=== PATIENT | male | born 1975 | race Caucasian/White ===

== ENCOUNTER 2017-01-17 20:01 | Inpatient (IN) | payer MEDICARE, MEDICAID ==
[~2017-01-17] VITALS: Ht 160 cm; Wt 71.7 kg
[2017-01-18] VITALS: BP 109/41
[2017-01-18] MEDS ORDERED: DOCUSATE SODIUM 283 MG/5 ML MINI-ENEMA PR PRN
[2017-01-18] MEDS ORDERED: ACETAMINOPHEN 650 MG/20.3 ML SOLUTION UDCUP GT PRN
[2017-01-18 00:27] LABS: GLUCOSE,POINT OF CARE 76 MG/DL (70-110)
[2017-01-18] MEDS ORDERED: DEXTROSE 50%-WATER 25 GM/50 ML SYRINGE IVP PRN (00:30)
[2017-01-18] MEDS ORDERED: LACTULOSE 20 GM/30 ML SOLUTION UDCUP GT PRN (00:45)
[2017-01-18] MEDS: ACETAMINOPHEN 650 MG/20.3 ML SOLUTION UDCUP GT PRN (01:08)
[2017-01-18] MEDS: HEPARIN SODIUM,PORCINE 5,000 UNITS/ML VIAL SQ SCH ×3 (01:08→20:50)
[2017-01-18] MEDS: FAMOTIDINE 20 MG TABLET GT SCH ×2 (01:08→20:50)
[2017-01-18] MEDS ORDERED: INSU100V12 SQ (03:06)
[2017-01-18] MEDS ORDERED: SODIUM CL IRRIG SOLN BOTTLE 250 ML IRRIG ONE ×2 (04:55→20:44)
[2017-01-18 06:33] LABS: GLUCOSE COMMENT 1 Received Meds; GLUCOSE,POINT OF CARE 304 MG/DL (70-110)
[2017-01-18] MEDS: INSULIN REGULAR, HUMAN 100 UNITS/ML SQ PRN ×2 (07:12→12:20)
[2017-01-18 07:53] VITALS: BP 148/93
[2017-01-18] MEDS ORDERED: EPOETIN ALFA 10,000 UNITS/ML 2 ML VIAL SQ SCH (09:00)
[2017-01-18] MEDS ORDERED: HEPARIN SODIUM,PORCINE 5,000 UNITS/ML VIAL SQ SCH (09:00)
[2017-01-18] MEDS ORDERED: MULTIVITAMINS WITH MINERALS, THERAPEUTIC 15 ML UDCUP GT SCH (09:00)
[2017-01-18] MEDS: INSULIN DETEMIR 100 UNITS/ML SQ SCH (09:08)
[2017-01-18] MEDS: AMIODARONE HCL 200 MG TABLET GT SCH (09:08)
[2017-01-18 09:09] LABS: BASOPHILS # (AUTO) 0.03 K/uL (0.00-0.20); BASOPHILS % (AUTO) 0.4 % (0.0-2.0); EOSINOPHILS # (AUTO) 0.42 K/uL (0.00-0.70); EOSINOPHILS % (AUTO) 4.66 % (1.0-6.0); HEMATOCRIT 29.2 % (41-53); HEMOGLOBIN 8.9 g/dL (13.5-17.5); LYMPHOCYTES % (AUTO) 22.3 % (22.0-44.0); MEAN CORPUSCULAR HEMOGLOBIN 24.9 pg (26.0-34.0); MEAN CORPUSCULAR HGB CONC 30.3 G/dL (31.0-37.0); MEAN CORPUSCULAR VOLUME 82 fL (80-100); MONOCYTES # (AUTO) 0.9 K/uL (0.1-1.0); MONOCYTES % (AUTO) 9.6 % (2.0-9.0); NEUTROPHILS # (AUTO) 5.6 K/uL (1.8-7.7); NEUTROPHILS % (AUTO) 63.1 % (40.0-70.0); PLATELET COUNT (AUTO) 142 K/uL (150-450); RED BLOOD CELL COUNT(AUTO) 3.55 MIL/uL (4.50-5.90); RED CELL DISTRIBUTION WIDTH 21.5 % (11.5-14.5)
[2017-01-18] MEDS: PredniSONE 5 MG TABLET GT SCH (09:09)
[2017-01-18] MEDS: FOLIC ACID 1 MG TABLET GT SCH (09:09)
[2017-01-18] MEDS: VITAMIN B COMP/VIT C/FOLIC ACID CAPSULE GT SCH (09:09)
[2017-01-18] MEDS: ASPIRIN 81 MG CHEWABLE TABLET GT SCH (09:09)
[2017-01-18] MEDS: ATORVASTATIN CALCIUM 20 MG TABLET GT SCH (09:09)
[2017-01-18 09:11] LABS: RBC MORPHOLOGY COMMENT ABNORMAL RBC MORPH
[2017-01-18 09:24] LABS: CALCIUM, TOTAL 8.5 mg/dL (8.8-10.5); CREATININE 5.54 mg/dL (0.60-1.30); POTASSIUM 4.6 mmol/L (3.5-5.1)
[2017-01-18] MEDS: IPRATROPIUM BROMIDE 0.5 MG/2.5 ML NEB SOLUTION NEB SCH ×4 (10:52→21:35)
[2017-01-18] MEDS: ALBUTEROL SULFATE 2.5 MG/0.5 ML NEB SOLUTION NEB SCH ×4 (10:52→21:36)
[2017-01-18] MEDS: ACETYLCYSTEINE 10% 100 MG/ML 4 ML NEB SOLUTION NEB SCH ×2 (10:55→21:36)
[2017-01-18 13:42] LABS: GLUCOSE,POINT OF CARE 270 MG/DL (70-110)
[2017-01-18 15:10] VITALS: BP 104/46
[2017-01-18 19:01] LABS: GLUCOSE,POINT OF CARE 121 MG/DL (70-110)
[2017-01-18] MEDS: SENNA 218 MG/5 ML SYRUP ORAL.SYG GT SCH (20:50)
[2017-01-19 00:10] VITALS: BP 128/60
[2017-01-19] MEDS: ACETAMINOPHEN 650 MG/20.3 ML SOLUTION UDCUP GT PRN ×4 (00:10→21:30)
[2017-01-19 00:17] LABS: GLUCOSE,POINT OF CARE 125 MG/DL (70-110)
[2017-01-19 05:52] LABS: GLUCOSE COMMENT 1 Received Meds; GLUCOSE,POINT OF CARE 394 MG/DL (70-110)
[2017-01-19] MEDS: INSULIN REGULAR, HUMAN 100 UNITS/ML SQ PRN ×4 (05:57→23:49)
[2017-01-19 07:13] VITALS: BP 98/54
[2017-01-19] MEDS: ACETYLCYSTEINE 10% 100 MG/ML 4 ML NEB SOLUTION NEB SCH ×2 (07:35→20:53)
[2017-01-19] MEDS: ALBUTEROL SULFATE 2.5 MG/0.5 ML NEB SOLUTION NEB SCH ×4 (07:35→20:53)
[2017-01-19] MEDS: IPRATROPIUM BROMIDE 0.5 MG/2.5 ML NEB SOLUTION NEB SCH ×4 (07:35→20:53)
[2017-01-19 07:39] LABS: HEMOGLOBIN A1C 6.3 % (4.5-6.2)
[2017-01-19 07:47] LABS: ALBUMIN 2.7 g/dL (3.4-5.0); BILIRUBIN,TOTAL 0.3 mg/dL (0.1-1.0); CALCIUM, TOTAL 8.5 mg/dL (8.8-10.5); CREATININE 6.6 mg/dL (0.60-1.30); MAGNESIUM 2.8 mg/dL (1.80-2.40); PHOSPHORUS 2.1 mg/dL (2.5-4.9); POTASSIUM 5.4 mmol/L (3.5-5.1); THYROID STIMULATING HORMONE 7.55 uIU/mL (0.36-3.74); TOTAL PROTEIN, SERUM 6.3 g/dL (6.4-8.2)
[2017-01-19] MEDS: INSULIN DETEMIR 100 UNITS/ML SQ SCH ×2 (09:00→21:39)
[2017-01-19 09:07] LABS: GLUCOSE,POINT OF CARE 379 MG/DL (70-110)
[2017-01-19] MEDS: PredniSONE 5 MG TABLET GT SCH (10:21)
[2017-01-19] MEDS: FOLIC ACID 1 MG TABLET GT SCH (10:21)
[2017-01-19] MEDS: ATORVASTATIN CALCIUM 20 MG TABLET GT SCH (10:21)
[2017-01-19] MEDS: HEPARIN SODIUM,PORCINE 5,000 UNITS/ML VIAL SQ SCH ×2 (10:21→21:29)
[2017-01-19] MEDS: AMIODARONE HCL 200 MG TABLET GT SCH (10:21)
[2017-01-19] MEDS: ASPIRIN 81 MG CHEWABLE TABLET GT SCH (10:21)
[2017-01-19] MEDS: MINERAL OIL/PETROLATUM 120 GM CREAM TP SCH ×2 (10:22→21:29)
[2017-01-19] MEDS: VITAMIN B COMP/VIT C/FOLIC ACID CAPSULE GT SCH (10:22)
[2017-01-19 12:28] LABS: GLUCOSE COMMENT 1 Received Meds; GLUCOSE,POINT OF CARE 168 MG/DL (70-110)
[2017-01-19 15:10] VITALS: BP 115/62
[2017-01-19] MEDS ORDERED: HEPARIN SODIUM,PORCINE 1,000 UNITS/ML VIAL IVP ONE (16:31)
[2017-01-19] MEDS ORDERED: MELATONIN 3 MG TABLET PO PRN ×3 (17:15→21:15)
[2017-01-19 17:31] LABS: ABG A-A DIFF O2 57.9 mmHg (10-20.0); ABG BASE EXCESS 4.6 mmol/L (-2.0-3.0); ABG HCO3 28.3 mmol/L (22.0-26.0); ABG PCO2 40 mmHg (35-45); ABG PH 7.469 (7.35-7.450); ALLEN TEST, BLOOD GAS POS; TEMPERATURE, FAHRENHEIT, BG 98.6 FAHREN (96.0-98.6)
[2017-01-19 18:37] LABS: GLUCOSE,POINT OF CARE 110 MG/DL (70-110)
[2017-01-19] MEDS: SENNA 218 MG/5 ML SYRUP ORAL.SYG GT SCH ×2 (21:00→21:29)
[2017-01-19] MEDS: FAMOTIDINE 20 MG TABLET GT SCH (21:29)
[2017-01-19 22:22] LABS: GLUCOSE,POINT OF CARE 166 MG/DL (70-110)
[2017-01-19 23:41] VITALS: BP 131/81
[2017-01-20 00:02] LABS: GLUCOSE COMMENT 1 Received Meds; GLUCOSE,POINT OF CARE 227 MG/DL (70-110)
[2017-01-20 06:17] LABS: GLUCOSE,POINT OF CARE 113 MG/DL (70-110)
[2017-01-20 07:20] VITALS: BP 114/67
[2017-01-20 07:42] LABS: CALCIUM, TOTAL 8.4 mg/dL (8.8-10.5); CREATININE 4.61 mg/dL (0.60-1.30); POTASSIUM 3.9 mmol/L (3.5-5.1); THYROID STIMULATING HORMONE 9.17 uIU/mL (0.36-3.74)
[2017-01-20] MEDS: AMIODARONE HCL 200 MG TABLET GT SCH (08:00)
[2017-01-20] MEDS: VITAMIN B COMP/VIT C/FOLIC ACID CAPSULE GT SCH (08:00)
[2017-01-20] MEDS: ASPIRIN 81 MG CHEWABLE TABLET GT SCH (08:00)
[2017-01-20] MEDS: PredniSONE 5 MG TABLET GT SCH (08:01)
[2017-01-20] MEDS: FOLIC ACID 1 MG TABLET GT SCH (08:01)
[2017-01-20] MEDS: ATORVASTATIN CALCIUM 20 MG TABLET GT SCH (08:01)
[2017-01-20] MEDS: INSULIN DETEMIR 100 UNITS/ML SQ SCH ×2 (08:08→21:12)
[2017-01-20] MEDS: ALBUTEROL SULFATE 2.5 MG/0.5 ML NEB SOLUTION NEB SCH ×4 (10:55→21:29)
[2017-01-20] MEDS: IPRATROPIUM BROMIDE 0.5 MG/2.5 ML NEB SOLUTION NEB SCH ×4 (10:55→21:30)
[2017-01-20] MEDS: ACETYLCYSTEINE 10% 100 MG/ML 4 ML NEB SOLUTION NEB SCH ×2 (10:55→21:43)
[2017-01-20] MEDS: HEPARIN SODIUM,PORCINE 5,000 UNITS/ML VIAL SQ SCH ×2 (11:01→21:00)
[2017-01-20] MEDS: MINERAL OIL/PETROLATUM 120 GM CREAM TP SCH (11:01)
[2017-01-20] MEDS: INSULIN REGULAR, HUMAN 100 UNITS/ML SQ PRN ×2 (12:28→23:43)
[2017-01-20 13:48] LABS: GLUCOSE COMMENT 1 Received Meds; GLUCOSE,POINT OF CARE 203 MG/DL (70-110)
[2017-01-20 15:42] VITALS: BP 101/57
[2017-01-20 18:22] LABS: GLUCOSE,POINT OF CARE 107 MG/DL (70-110)
[2017-01-20] MEDS: SENNA 218 MG/5 ML SYRUP ORAL.SYG GT SCH (20:59)
[2017-01-20] MEDS: ACETAMINOPHEN 650 MG/20.3 ML SOLUTION UDCUP GT PRN (20:59)
[2017-01-20] MEDS: FAMOTIDINE 20 MG TABLET GT SCH (21:00)
[2017-01-20] MEDS: COLD CREAM, SKIN EMOLLIENT 340 GM JAR TP SCH (21:00)
[2017-01-20 21:53] LABS: GLUCOSE,POINT OF CARE 207 MG/DL (70-110)
[2017-01-20] MEDS: MELATONIN 3 MG TABLET PO PRN (23:46)
[2017-01-21 00:07] LABS: GLUCOSE COMMENT 1 Received Meds; GLUCOSE,POINT OF CARE 327 MG/DL (70-110)
[2017-01-21 00:08] VITALS: BP 140/72
[2017-01-21] MEDS ORDERED: INSNOV SQ (01:00)
[2017-01-21] MEDS ORDERED: SEVEC800 PO (01:00)
[2017-01-21] MEDS ORDERED: FURO40 PO ×2 (01:00)
[2017-01-21] MEDS ORDERED: PRED5 PO (01:00)
[2017-01-21] MEDS ORDERED: CARV6 PO (01:00)
[2017-01-21] MEDS ORDERED: TACR.5 PO (01:00)
[2017-01-21] MEDS ORDERED: PRAV40 PO (01:00)
[2017-01-21] MEDS ORDERED: WATER FOR IRRIGATION,STERILE 1000 ML SOLUTION BOTTLE ONE ×2 (01:16→15:49)
[2017-01-21] MEDS: LEVOTHYROXINE SODIUM 25 MCG TABLET PO SCH (05:45)
[2017-01-21 06:02] LABS: GLUCOSE COMMENT 1 Received Meds; GLUCOSE,POINT OF CARE 164 MG/DL (70-110)
[2017-01-21] MEDS: INSULIN REGULAR, HUMAN 100 UNITS/ML SQ PRN (06:09)
[2017-01-21 07:10] VITALS: BP 117/61
[2017-01-21] MEDS: FOLIC ACID 1 MG TABLET GT SCH (08:02)
[2017-01-21] MEDS: PredniSONE 5 MG TABLET GT SCH (08:02)
[2017-01-21] MEDS: ATORVASTATIN CALCIUM 20 MG TABLET GT SCH (08:02)
[2017-01-21] MEDS: VITAMIN B COMP/VIT C/FOLIC ACID CAPSULE GT SCH (08:02)
[2017-01-21] MEDS: COLD CREAM, SKIN EMOLLIENT 340 GM JAR TP SCH ×2 (08:02→20:13)
[2017-01-21] MEDS: HEPARIN SODIUM,PORCINE 5,000 UNITS/ML VIAL SQ SCH ×2 (08:02→20:12)
[2017-01-21] MEDS: AMIODARONE HCL 200 MG TABLET GT SCH (08:02)
[2017-01-21] MEDS: ASPIRIN 81 MG CHEWABLE TABLET GT SCH (08:02)
[2017-01-21] MEDS: INSULIN DETEMIR 100 UNITS/ML SQ SCH (08:40)
[2017-01-21] MEDS: CHOLECALCIFEROL (VIT D3) 1,000 UNITS TABLET PO SCH (10:43)
[2017-01-21] MEDS: IPRATROPIUM BROMIDE 0.5 MG/2.5 ML NEB SOLUTION NEB SCH ×4 (11:10→20:08)
[2017-01-21] MEDS: ACETYLCYSTEINE 10% 100 MG/ML 4 ML NEB SOLUTION NEB SCH ×2 (11:10→20:09)
[2017-01-21] MEDS: ALBUTEROL SULFATE 2.5 MG/0.5 ML NEB SOLUTION NEB SCH ×4 (11:11→20:08)
[2017-01-21 12:56] LABS: GLUCOSE,POINT OF CARE 84 MG/DL (70-110)
[2017-01-21 15:03] VITALS: BP 119/55
[2017-01-21] MEDS: ACETAMINOPHEN 650 MG/20.3 ML SOLUTION UDCUP GT PRN (16:57)
[2017-01-21] MEDS: ONDANSETRON HCL 4 MG TABLET PO PRN (17:04)
[2017-01-21 19:03] LABS: GLUCOSE,POINT OF CARE 87 MG/DL (70-110)
[2017-01-21 19:03] LABS: GLUCOSE COMMENT 1 Juice/Food/D50 Given; GLUCOSE,POINT OF CARE 57 MG/DL (70-110)
[2017-01-21] MEDS: SENNA 218 MG/5 ML SYRUP ORAL.SYG GT SCH (20:12)
[2017-01-21] MEDS: FAMOTIDINE 20 MG TABLET GT SCH (20:12)
[2017-01-21] MEDS: MELATONIN 3 MG TABLET PO PRN (23:39)
[2017-01-22] VITALS: BP 122/81
[2017-01-22] MEDS: INSULIN REGULAR, HUMAN 100 UNITS/ML SQ PRN ×4 (00:01→23:50)
[2017-01-22 00:12] LABS: GLUCOSE COMMENT 1 Received Meds; GLUCOSE,POINT OF CARE 285 MG/DL (70-110)
[2017-01-22] MEDS: IPRATROPIUM BROMIDE 0.5 MG/2.5 ML NEB SOLUTION NEB PRN (01:49)
[2017-01-22] MEDS: ALBUTEROL SULFATE 2.5 MG/0.5 ML NEB SOLUTION NEB PRN (01:49)
[2017-01-22] MEDS: ONDANSETRON HCL 4 MG TABLET PO PRN ×2 (05:30→20:02)
[2017-01-22] MEDS: LEVOTHYROXINE SODIUM 25 MCG TABLET PO SCH (05:30)
[2017-01-22 05:36] LABS: GLUCOSE COMMENT 1 Received Meds; GLUCOSE,POINT OF CARE 349 MG/DL (70-110)
[2017-01-22 07:11] VITALS: BP 107/47
[2017-01-22 07:17] LABS: CALCIUM, TOTAL 8.6 mg/dL (8.8-10.5); CREATININE 7.67 mg/dL (0.60-1.30); MAGNESIUM 2.8 mg/dL (1.80-2.40); PHOSPHORUS 2.6 mg/dL (2.5-4.9); POTASSIUM 4.5 mmol/L (3.5-5.1)
[2017-01-22] MEDS: IPRATROPIUM BROMIDE 0.5 MG/2.5 ML NEB SOLUTION NEB SCH ×4 (08:11→21:17)
[2017-01-22] MEDS: ALBUTEROL SULFATE 2.5 MG/0.5 ML NEB SOLUTION NEB SCH ×4 (08:11→21:17)
[2017-01-22] MEDS: ACETYLCYSTEINE 10% 100 MG/ML 4 ML NEB SOLUTION NEB SCH ×2 (08:11→21:17)
[2017-01-22] MEDS: FOLIC ACID 1 MG TABLET GT SCH (08:21)
[2017-01-22] MEDS: ASPIRIN 81 MG CHEWABLE TABLET GT SCH (08:21)
[2017-01-22] MEDS: ATORVASTATIN CALCIUM 20 MG TABLET GT SCH (08:21)
[2017-01-22] MEDS: CHOLECALCIFEROL (VIT D3) 1,000 UNITS TABLET PO SCH (08:21)
[2017-01-22] MEDS: PredniSONE 5 MG TABLET GT SCH (08:22)
[2017-01-22] MEDS: VITAMIN B COMP/VIT C/FOLIC ACID CAPSULE GT SCH (08:22)
[2017-01-22] MEDS: HEPARIN SODIUM,PORCINE 5,000 UNITS/ML VIAL SQ SCH ×2 (08:22→20:02)
[2017-01-22] MEDS: EPOETIN ALFA 10,000 UNITS/ML VIAL SQ SCH (08:27)
[2017-01-22] MEDS: INSULIN DETEMIR 100 UNITS/ML SQ SCH (08:30)
[2017-01-22] MEDS: COLD CREAM, SKIN EMOLLIENT 340 GM JAR TP SCH ×2 (08:32→20:05)
[2017-01-22] MEDS: AMIODARONE HCL 200 MG TABLET GT SCH (09:00)
[2017-01-22] MEDS ORDERED: MELATONIN 3 MG TABLET PO PRN ×2 (11:00→21:00)
[2017-01-22] MEDS ORDERED: HEPARIN SODIUM,PORCINE 1,000 UNITS/ML VIAL IVP ONE ×3 (12:00→16:30)
[2017-01-22 12:47] LABS: GLUCOSE,POINT OF CARE 239 MG/DL (70-110)
[2017-01-22 13:10] LABS: BASOPHILS % (AUTO) 0.5 % (0.0-2.0); EOSINOPHILS % (AUTO) 7.1 % (1.0-6.0); HEMOGLOBIN 8.9 g/dL (13.5-17.5); LYMPHOCYTES # (AUTO) 2.3 K/uL (1.0-4.8); LYMPHOCYTES % (AUTO) 26.7 % (22.0-44.0); MEAN CORPUSCULAR HEMOGLOBIN 25.8 pg (26.0-34.0); MEAN CORPUSCULAR HGB CONC 30.6 G/dL (31.0-37.0); MEAN CORPUSCULAR VOLUME 84 fL (80-100); MONOCYTES # (AUTO) 0.5 K/uL (0.1-1.0); MONOCYTES % (AUTO) 6.5 % (2.0-9.0); NEUTROPHILS % (AUTO) 59.2 % (40.0-70.0); PLATELET COUNT (AUTO) 183 K/uL (150-450); RED BLOOD CELL COUNT(AUTO) 3.45 MIL/uL (4.50-5.90); RED CELL DISTRIBUTION WIDTH 22.2 % (11.5-14.5); WHITE BLOOD COUNT (AUTO) 8.5 K/uL (4.5-11.0)
[2017-01-22 14:29] LABS: RBC MORPHOLOGY COMMENT ABNORMAL RBC MORPH
[2017-01-22 15:45] VITALS: BP 120/70
[2017-01-22] MEDS: ACETAMINOPHEN 650 MG/20.3 ML SOLUTION UDCUP GT PRN ×2 (15:47→21:43)
[2017-01-22] MEDS ORDERED: MANNITOL 25%-12.5 GM/50 ML VIAL IVP PRN (16:30)
[2017-01-22 18:37] LABS: GLUCOSE,POINT OF CARE 111 MG/DL (70-110)
[2017-01-22] MEDS: FAMOTIDINE 20 MG TABLET GT SCH (20:02)
[2017-01-22] MEDS: ROPINIRole HCL 0.25 MG TABLET PO SCH (20:03)
[2017-01-22] MEDS: SENNA 218 MG/5 ML SYRUP ORAL.SYG GT SCH (20:05)
[2017-01-22 23:47] LABS: GLUCOSE COMMENT 1 Received Meds; GLUCOSE,POINT OF CARE 209 MG/DL (70-110)
[2017-01-23] VITALS: BP 135/65
[2017-01-23] MEDS: INSULIN REGULAR, HUMAN 100 UNITS/ML SQ PRN ×2 (05:44→12:28)
[2017-01-23] MEDS: LEVOTHYROXINE SODIUM 25 MCG TABLET PO SCH (05:45)
[2017-01-23 05:52] LABS: GLUCOSE COMMENT 1 Received Meds; GLUCOSE,POINT OF CARE 254 MG/DL (70-110)
[2017-01-23 07:10] VITALS: BP 109/72
[2017-01-23] MEDS: PredniSONE 5 MG TABLET GT SCH (08:10)
[2017-01-23] MEDS: FOLIC ACID 1 MG TABLET GT SCH (08:10)
[2017-01-23] MEDS: ASPIRIN 81 MG CHEWABLE TABLET GT SCH (08:10)
[2017-01-23] MEDS: CHOLECALCIFEROL (VIT D3) 1,000 UNITS TABLET PO SCH (08:11)
[2017-01-23] MEDS: HEPARIN SODIUM,PORCINE 5,000 UNITS/ML VIAL SQ SCH ×2 (08:11→20:21)
[2017-01-23] MEDS: VITAMIN B COMP/VIT C/FOLIC ACID CAPSULE GT SCH (08:11)
[2017-01-23] MEDS: AMIODARONE HCL 200 MG TABLET GT SCH (08:11)
[2017-01-23] MEDS: ATORVASTATIN CALCIUM 20 MG TABLET GT SCH (08:11)
[2017-01-23] MEDS: INSULIN DETEMIR 100 UNITS/ML SQ SCH (08:13)
[2017-01-23] MEDS: COLD CREAM, SKIN EMOLLIENT 340 GM JAR TP SCH ×2 (08:22→20:23)
[2017-01-23] MEDS: ALBUTEROL SULFATE 2.5 MG/0.5 ML NEB SOLUTION NEB SCH ×4 (11:42→21:01)
[2017-01-23] MEDS: IPRATROPIUM BROMIDE 0.5 MG/2.5 ML NEB SOLUTION NEB SCH ×4 (11:42→21:00)
[2017-01-23] MEDS: ACETYLCYSTEINE 10% 100 MG/ML 4 ML NEB SOLUTION NEB SCH ×2 (11:42→21:00)
[2017-01-23 12:37] LABS: GLUCOSE,POINT OF CARE 233 MG/DL (70-110)
[2017-01-23 15:29] VITALS: BP 105/68
[2017-01-23 18:41] LABS: GLUCOSE,POINT OF CARE 127 MG/DL (70-110)
[2017-01-23] MEDS: LACTULOSE 20 GM/30 ML SOLUTION UDCUP GT PRN (20:21)
[2017-01-23] MEDS: SENNA 218 MG/5 ML SYRUP ORAL.SYG GT SCH (20:21)
[2017-01-23] MEDS: FAMOTIDINE 20 MG TABLET GT SCH (20:21)
[2017-01-23] MEDS: ROPINIRole HCL 0.25 MG TABLET PO SCH (20:22)
[2017-01-23 23:20] VITALS: BP 139/74
[2017-01-23] MEDS: MELATONIN 3 MG TABLET PO PRN (23:59)
[2017-01-24] MEDS: INSULIN REGULAR, HUMAN 100 UNITS/ML SQ PRN ×5 (00:03→23:49)
[2017-01-24 00:21] LABS: GLUCOSE COMMENT 1 Received Meds; GLUCOSE,POINT OF CARE 294 MG/DL (70-110)
[2017-01-24] MEDS ORDERED: SODIUM CL IRRIG SOLN BOTTLE 250 ML IRRIG ONE (02:49)
[2017-01-24] MEDS ORDERED: WATER FOR IRRIGATION,STERILE 1000 ML SOLUTION BOTTLE ONE (04:12)
[2017-01-24] MEDS: LEVOTHYROXINE SODIUM 25 MCG TABLET PO SCH (05:34)
[2017-01-24 05:42] LABS: GLUCOSE COMMENT 1 Received Meds; GLUCOSE,POINT OF CARE 319 MG/DL (70-110)
[2017-01-24 07:30] VITALS: BP 119/105
[2017-01-24] MEDS: EPOETIN ALFA 10,000 UNITS/ML VIAL SQ SCH (08:05)
[2017-01-24] MEDS: VITAMIN B COMP/VIT C/FOLIC ACID CAPSULE GT SCH (08:05)
[2017-01-24] MEDS: HEPARIN SODIUM,PORCINE 5,000 UNITS/ML VIAL SQ SCH ×2 (08:05→20:34)
[2017-01-24] MEDS: COLD CREAM, SKIN EMOLLIENT 340 GM JAR TP SCH ×2 (08:06→20:34)
[2017-01-24] MEDS: CHOLECALCIFEROL (VIT D3) 1,000 UNITS TABLET PO SCH (08:06)
[2017-01-24] MEDS: ASPIRIN 81 MG CHEWABLE TABLET GT SCH (08:06)
[2017-01-24] MEDS: FOLIC ACID 1 MG TABLET GT SCH (08:06)
[2017-01-24] MEDS: PredniSONE 5 MG TABLET GT SCH (08:06)
[2017-01-24] MEDS: ATORVASTATIN CALCIUM 20 MG TABLET GT SCH (08:06)
[2017-01-24] MEDS: INSULIN DETEMIR 100 UNITS/ML SQ SCH (08:07)
[2017-01-24] MEDS: ALBUTEROL SULFATE 2.5 MG/0.5 ML NEB SOLUTION NEB SCH ×4 (08:28→20:55)
[2017-01-24] MEDS: ACETYLCYSTEINE 10% 100 MG/ML 4 ML NEB SOLUTION NEB SCH ×2 (08:28→20:55)
[2017-01-24] MEDS: IPRATROPIUM BROMIDE 0.5 MG/2.5 ML NEB SOLUTION NEB SCH ×4 (08:28→20:55)
[2017-01-24] MEDS: AMIODARONE HCL 200 MG TABLET GT SCH ×2 (08:32→09:55)
[2017-01-24 13:02] LABS: GLUCOSE,POINT OF CARE 183 MG/DL (70-110)
[2017-01-24] MEDS ORDERED: SODIUM CHLORIDE 0.9% 2,000 ML IV ONE (13:34)
[2017-01-24 17:28] VITALS: BP 129/53
[2017-01-24] MEDS ORDERED: HEPARIN SODIUM,PORCINE 1,000 UNITS/ML VIAL IVP ONE (17:51)
[2017-01-24] MEDS: ACETAMINOPHEN 650 MG/20.3 ML SOLUTION UDCUP GT PRN (18:52)
[2017-01-24 19:21] LABS: GLUCOSE,POINT OF CARE 94 MG/DL (70-110)
[2017-01-24 19:21] LABS: GLUCOSE,POINT OF CARE 57 MG/DL (70-110)
[2017-01-24] MEDS: FAMOTIDINE 20 MG TABLET GT SCH (20:34)
[2017-01-24] MEDS: SENNA 218 MG/5 ML SYRUP ORAL.SYG GT SCH (20:34)
[2017-01-24] MEDS: ROPINIRole HCL 0.25 MG TABLET PO SCH (20:34)
[2017-01-24 21:27] LABS: GLUCOSE,POINT OF CARE 194 MG/DL (70-110)
[2017-01-24] MEDS: MELATONIN 3 MG TABLET PO PRN (21:33)
[2017-01-25] VITALS: BP 129/68
[2017-01-25 00:12] LABS: GLUCOSE COMMENT 1 Received Meds; GLUCOSE,POINT OF CARE 197 MG/DL (70-110)
[2017-01-25] MEDS: LEVOTHYROXINE SODIUM 25 MCG TABLET PO SCH (05:37)
[2017-01-25] MEDS: INSULIN REGULAR, HUMAN 100 UNITS/ML SQ PRN ×4 (05:41→23:33)
[2017-01-25 05:46] LABS: GLUCOSE COMMENT 1 Received Meds; GLUCOSE,POINT OF CARE 267 MG/DL (70-110)
[2017-01-25 07:07] VITALS: BP 118/67
[2017-01-25] MEDS: ACETYLCYSTEINE 10% 100 MG/ML 4 ML NEB SOLUTION NEB SCH ×2 (08:56→21:00)
[2017-01-25] MEDS: IPRATROPIUM BROMIDE 0.5 MG/2.5 ML NEB SOLUTION NEB SCH ×4 (08:56→21:47)
[2017-01-25] MEDS: ALBUTEROL SULFATE 2.5 MG/0.5 ML NEB SOLUTION NEB SCH ×4 (08:56→21:47)
[2017-01-25] MEDS: HEPARIN SODIUM,PORCINE 5,000 UNITS/ML VIAL SQ SCH ×2 (09:05→20:18)
[2017-01-25] MEDS: ATORVASTATIN CALCIUM 20 MG TABLET GT SCH (09:05)
[2017-01-25] MEDS: FOLIC ACID 1 MG TABLET GT SCH (09:05)
[2017-01-25] MEDS: CHOLECALCIFEROL (VIT D3) 1,000 UNITS TABLET PO SCH (09:05)
[2017-01-25] MEDS: VITAMIN B COMP/VIT C/FOLIC ACID CAPSULE GT SCH (09:05)
[2017-01-25] MEDS: PredniSONE 5 MG TABLET GT SCH (09:05)
[2017-01-25] MEDS: AMIODARONE HCL 200 MG TABLET GT SCH (09:06)
[2017-01-25] MEDS: ASPIRIN 81 MG CHEWABLE TABLET GT SCH (09:06)
[2017-01-25] MEDS: INSULIN DETEMIR 100 UNITS/ML SQ SCH (09:07)
[2017-01-25] MEDS: COLD CREAM, SKIN EMOLLIENT 340 GM JAR TP SCH ×2 (09:08→20:20)
[2017-01-25 12:28] LABS: GLUCOSE,POINT OF CARE 320 MG/DL (70-110)
[2017-01-25 15:00] VITALS: BP 118/61
[2017-01-25 19:17] LABS: GLUCOSE COMMENT 1 Received Meds; GLUCOSE,POINT OF CARE 208 MG/DL (70-110)
[2017-01-25] MEDS: FAMOTIDINE 20 MG TABLET GT SCH (20:18)
[2017-01-25] MEDS: ROPINIRole HCL 0.25 MG TABLET PO SCH (20:18)
[2017-01-25] MEDS: SENNA 218 MG/5 ML SYRUP ORAL.SYG GT SCH (20:19)
[2017-01-25] MEDS: LACTULOSE 20 GM/30 ML SOLUTION UDCUP GT PRN (20:20)
[2017-01-25] MEDS: MELATONIN 3 MG TABLET PO PRN (20:38)
[2017-01-25] MEDS ORDERED: WATER FOR IRRIGATION,STERILE 1000 ML SOLUTION BOTTLE ONE (20:55)
[2017-01-25 23:38] VITALS: BP 126/63
[2017-01-26 00:57] LABS: GLUCOSE COMMENT 1 Received Meds; GLUCOSE,POINT OF CARE 208 MG/DL (70-110)
[2017-01-26] MEDS: LEVOTHYROXINE SODIUM 25 MCG TABLET PO SCH (05:49)
[2017-01-26] MEDS ORDERED: INSULIN REGULAR, HUMAN 100 UNITS/ML SQ ONE (06:30)
[2017-01-26 06:57] LABS: GLUCOSE COMMENT 1 Received Meds; GLUCOSE,POINT OF CARE 410 MG/DL (70-110)
[2017-01-26 07:15] VITALS: BP 127/69
[2017-01-26] MEDS: EPOETIN ALFA 10,000 UNITS/ML VIAL SQ SCH (08:07)
[2017-01-26] MEDS: HEPARIN SODIUM,PORCINE 5,000 UNITS/ML VIAL SQ SCH ×2 (08:07→20:02)
[2017-01-26] MEDS: VITAMIN B COMP/VIT C/FOLIC ACID CAPSULE GT SCH (08:07)
[2017-01-26] MEDS: FOLIC ACID 1 MG TABLET GT SCH (08:07)
[2017-01-26] MEDS: ATORVASTATIN CALCIUM 20 MG TABLET GT SCH (08:07)
[2017-01-26] MEDS: INSULIN DETEMIR 100 UNITS/ML SQ SCH (08:08)
[2017-01-26] MEDS: AMIODARONE HCL 200 MG TABLET GT SCH (08:08)
[2017-01-26] MEDS: ASPIRIN 81 MG CHEWABLE TABLET GT SCH (08:08)
[2017-01-26] MEDS: PredniSONE 5 MG TABLET GT SCH (08:08)
[2017-01-26] MEDS: CHOLECALCIFEROL (VIT D3) 1,000 UNITS TABLET PO SCH (08:08)
[2017-01-26] MEDS: COLD CREAM, SKIN EMOLLIENT 340 GM JAR TP SCH ×2 (08:09→20:02)
[2017-01-26] MEDS: IPRATROPIUM BROMIDE 0.5 MG/2.5 ML NEB SOLUTION NEB SCH ×3 (08:47→21:43)
[2017-01-26] MEDS: ALBUTEROL SULFATE 2.5 MG/0.5 ML NEB SOLUTION NEB SCH ×4 (08:47→21:43)
[2017-01-26] MEDS: ACETYLCYSTEINE 10% 100 MG/ML 4 ML NEB SOLUTION NEB SCH ×2 (08:49→21:00)
[2017-01-26] MEDS ORDERED: SODIUM CHLORIDE 0.9% 2,000 ML IV ONE (11:14)
[2017-01-26] MEDS: INSULIN REGULAR, HUMAN 100 UNITS/ML SQ PRN ×3 (12:44→23:58)
[2017-01-26 15:36] VITALS: BP 124/71
[2017-01-26] MEDS: ONDANSETRON HCL 4 MG TABLET PO PRN (16:35)
[2017-01-26] MEDS ORDERED: HEPARIN SODIUM,PORCINE 1,000 UNITS/ML VIAL IVP ONE (17:34)
[2017-01-26 18:07] LABS: GLUCOSE,POINT OF CARE 306 MG/DL (70-110)
[2017-01-26 18:07] LABS: GLUCOSE COMMENT 1 Received Meds; GLUCOSE,POINT OF CARE 143 MG/DL (70-110)
[2017-01-26] MEDS: LACTULOSE 20 GM/30 ML SOLUTION UDCUP GT PRN (20:01)
[2017-01-26] MEDS: SENNA 218 MG/5 ML SYRUP ORAL.SYG GT SCH (20:02)
[2017-01-26] MEDS: FAMOTIDINE 20 MG TABLET GT SCH (20:02)
[2017-01-26] MEDS: ROPINIRole HCL 0.25 MG TABLET PO SCH (20:02)
[2017-01-26] MEDS: MELATONIN 3 MG TABLET PO PRN (21:39)
[2017-01-26 23:46] LABS: GLUCOSE COMMENT 1 Received Meds; GLUCOSE,POINT OF CARE 275 MG/DL (70-110)
[2017-01-27 00:02] VITALS: BP 131/68
[2017-01-27] MEDS: LEVOTHYROXINE SODIUM 25 MCG TABLET PO SCH (05:46)
[2017-01-27] MEDS: INSULIN REGULAR, HUMAN 100 UNITS/ML SQ PRN ×3 (05:48→18:27)
[2017-01-27 05:57] LABS: GLUCOSE COMMENT 1 Received Meds; GLUCOSE,POINT OF CARE 308 MG/DL (70-110)
[2017-01-27 07:01] VITALS: BP 126/71
[2017-01-27] MEDS ORDERED: BUDESONIDE 0.5 MG/2 ML NEB SOLUTION NEB ONE (07:56)
[2017-01-27] MEDS: IPRATROPIUM BROMIDE 0.5 MG/2.5 ML NEB SOLUTION NEB SCH ×4 (08:00→21:08)
[2017-01-27] MEDS: ALBUTEROL SULFATE 2.5 MG/0.5 ML NEB SOLUTION NEB SCH ×4 (08:00→21:08)
[2017-01-27] MEDS: ACETYLCYSTEINE 10% 100 MG/ML 4 ML NEB SOLUTION NEB SCH ×2 (08:00→21:08)
[2017-01-27] MEDS: HEPARIN SODIUM,PORCINE 5,000 UNITS/ML VIAL SQ SCH ×2 (08:35→20:20)
[2017-01-27] MEDS: ATORVASTATIN CALCIUM 20 MG TABLET GT SCH (08:35)
[2017-01-27] MEDS: FOLIC ACID 1 MG TABLET GT SCH (08:36)
[2017-01-27] MEDS: VITAMIN B COMP/VIT C/FOLIC ACID CAPSULE GT SCH (08:36)
[2017-01-27] MEDS: ASPIRIN 81 MG CHEWABLE TABLET GT SCH (08:36)
[2017-01-27] MEDS: CHOLECALCIFEROL (VIT D3) 1,000 UNITS TABLET PO SCH (08:36)
[2017-01-27] MEDS: PredniSONE 5 MG TABLET GT SCH (08:36)
[2017-01-27] MEDS: AMIODARONE HCL 200 MG TABLET GT SCH (08:36)
[2017-01-27] MEDS: INSULIN DETEMIR 100 UNITS/ML SQ SCH (08:37)
[2017-01-27] MEDS: COLD CREAM, SKIN EMOLLIENT 340 GM JAR TP SCH ×2 (08:56→20:20)
[2017-01-27 13:17] LABS: GLUCOSE,POINT OF CARE 305 MG/DL (70-110)
[2017-01-27 15:00] VITALS: BP 128/61
[2017-01-27] MEDS ORDERED: BISACODYL 10 MG RECTAL RECTAL SUPPOSITORY PR PRN (15:30)
[2017-01-27] MEDS ORDERED: SIMETHICONE 80 MG CHEWABLE TABLET CHEW PRN (17:45)
[2017-01-27 18:22] LABS: GLUCOSE COMMENT 1 Received Meds; GLUCOSE,POINT OF CARE 247 MG/DL (70-110)
[2017-01-27] MEDS ORDERED: SODIUM PHOS/SODIUM BIPHOS 133 ML ENEMA PR ONE (18:45)
[2017-01-27] MEDS: BISACODYL 10 MG RECTAL RECTAL SUPPOSITORY PR PRN (19:06)
[2017-01-27] MEDS: SENNA 218 MG/5 ML SYRUP ORAL.SYG GT SCH (20:19)
[2017-01-27] MEDS: ROPINIRole HCL 0.25 MG TABLET PO SCH (20:19)
[2017-01-27] MEDS: FAMOTIDINE 20 MG TABLET GT SCH (20:19)
[2017-01-27] MEDS: MELATONIN 3 MG TABLET PO PRN (20:25)
[2017-01-28] MEDS: INSULIN REGULAR, HUMAN 100 UNITS/ML SQ PRN ×4 (00:04→17:38)
[2017-01-28 00:27] VITALS: BP 120/88
[2017-01-28 00:27] LABS: GLUCOSE COMMENT 1 Received Meds; GLUCOSE,POINT OF CARE 239 MG/DL (70-110)
[2017-01-28] MEDS: ACETAMINOPHEN 650 MG/20.3 ML SOLUTION UDCUP GT PRN (05:31)
[2017-01-28] MEDS: LEVOTHYROXINE SODIUM 25 MCG TABLET PO SCH (05:31)
[2017-01-28 06:17] LABS: GLUCOSE COMMENT 1 Received Meds; GLUCOSE,POINT OF CARE 284 MG/DL (70-110)
[2017-01-28 07:16] VITALS: BP 113/63
[2017-01-28] MEDS: PredniSONE 5 MG TABLET GT SCH (08:12)
[2017-01-28] MEDS: VITAMIN B COMP/VIT C/FOLIC ACID CAPSULE GT SCH (08:12)
[2017-01-28] MEDS: DOCUSATE SODIUM 100 MG CAPSULE PO SCH (08:12)
[2017-01-28] MEDS: HEPARIN SODIUM,PORCINE 5,000 UNITS/ML VIAL SQ SCH ×2 (08:12→20:18)
[2017-01-28] MEDS: ASPIRIN 81 MG CHEWABLE TABLET GT SCH (08:12)
[2017-01-28] MEDS: AMIODARONE HCL 200 MG TABLET GT SCH (08:12)
[2017-01-28] MEDS: FOLIC ACID 1 MG TABLET GT SCH (08:12)
[2017-01-28] MEDS: ATORVASTATIN CALCIUM 20 MG TABLET GT SCH (08:12)
[2017-01-28] MEDS: INSULIN DETEMIR 100 UNITS/ML SQ SCH (08:13)
[2017-01-28] MEDS: CHOLECALCIFEROL (VIT D3) 1,000 UNITS TABLET PO SCH (08:17)
[2017-01-28] MEDS: COLD CREAM, SKIN EMOLLIENT 340 GM JAR TP SCH ×2 (08:18→20:19)
[2017-01-28] MEDS: ALBUTEROL SULFATE 2.5 MG/0.5 ML NEB SOLUTION NEB SCH ×4 (08:57→20:19)
[2017-01-28] MEDS: IPRATROPIUM BROMIDE 0.5 MG/2.5 ML NEB SOLUTION NEB SCH ×4 (08:57→20:19)
[2017-01-28] MEDS: ACETYLCYSTEINE 10% 100 MG/ML 4 ML NEB SOLUTION NEB SCH ×2 (08:57→20:30)
[2017-01-28] MEDS ORDERED: LACTULOSE 20 GM/30 ML SOLUTION UDCUP PO SCH ×2 (09:00→18:00)
[2017-01-28 12:51] LABS: GLUCOSE COMMENT 1 Received Meds; GLUCOSE,POINT OF CARE 349 MG/DL (70-110)
[2017-01-28 15:00] VITALS: BP 119/60
[2017-01-28] MEDS: LACTULOSE 20 GM/30 ML SOLUTION UDCUP PO SCH (17:39)
[2017-01-28 17:47] LABS: GLUCOSE,POINT OF CARE 163 MG/DL (70-110)
[2017-01-28] MEDS: SENNA 218 MG/5 ML SYRUP ORAL.SYG GT SCH (20:18)
[2017-01-28] MEDS: ROPINIRole HCL 0.25 MG TABLET PO SCH (20:19)
[2017-01-28] MEDS: FAMOTIDINE 20 MG TABLET GT SCH (20:19)
[2017-01-28] MEDS: MELATONIN 3 MG TABLET PO PRN (22:55)
[2017-01-29] VITALS: BP 123/65
[2017-01-29] MEDS: INSULIN REGULAR, HUMAN 100 UNITS/ML SQ PRN ×3 (00:27→12:20)
[2017-01-29 00:57] LABS: GLUCOSE COMMENT 1 Received Meds; GLUCOSE,POINT OF CARE 206 MG/DL (70-110)
[2017-01-29] MEDS: LEVOTHYROXINE SODIUM 25 MCG TABLET PO SCH (05:45)
[2017-01-29 06:08] LABS: GLUCOSE COMMENT 1 Received Meds; GLUCOSE,POINT OF CARE 258 MG/DL (70-110)
[2017-01-29 06:56] LABS: BASOPHILS % (AUTO) 0.4 % (0.0-2.0); EOSINOPHILS % (AUTO) 7.8 % (1.0-6.0); HEMATOCRIT 31.4 % (41-53); HEMOGLOBIN 9.5 g/dL (13.5-17.5); LYMPHOCYTES # (AUTO) 1.7 K/uL (1.0-4.8); LYMPHOCYTES % (AUTO) 20.4 % (22.0-44.0); MEAN CORPUSCULAR HEMOGLOBIN 25.1 pg (26.0-34.0); MEAN CORPUSCULAR HGB CONC 30.3 G/dL (31.0-37.0); MEAN CORPUSCULAR VOLUME 83 fL (80-100); MONOCYTES # (AUTO) 0.6 K/uL (0.1-1.0); MONOCYTES % (AUTO) 6.9 % (2.0-9.0); NEUTROPHILS # (AUTO) 5.4 K/uL (1.8-7.7); NEUTROPHILS % (AUTO) 64.5 % (40.0-70.0); PLATELET COUNT (AUTO) 151 K/uL (150-450); RED BLOOD CELL COUNT(AUTO) 3.79 MIL/uL (4.50-5.90); RED CELL DISTRIBUTION WIDTH 22.4 % (11.5-14.5); WHITE BLOOD COUNT (AUTO) 8.4 K/uL (4.5-11.0)
[2017-01-29 07:12] LABS: CALCIUM, TOTAL 8.6 mg/dL (8.8-10.5); CREATININE 7.11 mg/dL (0.60-1.30); POTASSIUM 4.7 mmol/L (3.5-5.1)
[2017-01-29 07:18] VITALS: BP 118/61
[2017-01-29] MEDS: IPRATROPIUM BROMIDE 0.5 MG/2.5 ML NEB SOLUTION NEB SCH ×4 (08:25→21:46)
[2017-01-29] MEDS: ALBUTEROL SULFATE 2.5 MG/0.5 ML NEB SOLUTION NEB SCH ×4 (08:25→21:46)
[2017-01-29] MEDS: ACETYLCYSTEINE 10% 100 MG/ML 4 ML NEB SOLUTION NEB SCH ×2 (08:26→21:00)
[2017-01-29] MEDS: EPOETIN ALFA 10,000 UNITS/ML VIAL SQ SCH (08:45)
[2017-01-29] MEDS: ASPIRIN 81 MG CHEWABLE TABLET GT SCH (08:46)
[2017-01-29] MEDS: ATORVASTATIN CALCIUM 20 MG TABLET GT SCH (08:46)
[2017-01-29] MEDS: HEPARIN SODIUM,PORCINE 5,000 UNITS/ML VIAL SQ SCH ×2 (08:46→20:17)
[2017-01-29] MEDS: CHOLECALCIFEROL (VIT D3) 1,000 UNITS TABLET PO SCH (08:46)
[2017-01-29] MEDS: DOCUSATE SODIUM 100 MG CAPSULE PO SCH (08:46)
[2017-01-29] MEDS: FOLIC ACID 1 MG TABLET GT SCH (08:46)
[2017-01-29] MEDS: AMIODARONE HCL 200 MG TABLET GT SCH (08:47)
[2017-01-29] MEDS: PredniSONE 5 MG TABLET GT SCH (08:47)
[2017-01-29] MEDS: VITAMIN B COMP/VIT C/FOLIC ACID CAPSULE GT SCH (08:48)
[2017-01-29] MEDS: COLD CREAM, SKIN EMOLLIENT 340 GM JAR TP SCH ×2 (08:49→20:21)
[2017-01-29] MEDS: INSULIN DETEMIR 100 UNITS/ML SQ SCH (08:50)
[2017-01-29 09:36] LABS: RBC MORPHOLOGY COMMENT ABNORMAL RBC MORPH
[2017-01-29 11:23] LABS: ABG A-A DIFF O2 24.3 mmHg (10-20.0); ABG BASE EXCESS -1.4 mmol/L (-2.0-3.0); ABG HCO3 23.4 mmol/L (22.0-26.0); ABG OXYHEMOGLOBIN 94.8 % (94.0-100.0); ABG PCO2 39 mmHg (35-45); ABG PH 7.396 (7.35-7.450); TEMPERATURE, FAHRENHEIT, BG 98.6 FAHREN (96.0-98.6)
[2017-01-29 11:24] LABS: ALLEN TEST, BLOOD GAS Positive
[2017-01-29 12:22] LABS: GLUCOSE,POINT OF CARE 400 MG/DL (70-110)
[2017-01-29] MEDS ORDERED: SODIUM CHLORIDE 0.9% 1,000 ML IV ONE ×2 (13:06)
[2017-01-29 15:16] VITALS: BP 112/50
[2017-01-29] MEDS ORDERED: HEPARIN SODIUM,PORCINE 1,000 UNITS/ML VIAL IVP ONE ×4 (17:56→18:15)
[2017-01-29] MEDS ORDERED: MANNITOL 25%-12.5 GM/50 ML VIAL IVP PRN (18:15)
[2017-01-29] MEDS: LACTULOSE 20 GM/30 ML SOLUTION UDCUP PO SCH (20:17)
[2017-01-29] MEDS: SENNA 218 MG/5 ML SYRUP ORAL.SYG GT SCH (20:17)
[2017-01-29] MEDS: ROPINIRole HCL 0.25 MG TABLET PO SCH (20:18)
[2017-01-29] MEDS: FAMOTIDINE 20 MG TABLET GT SCH (20:18)
[2017-01-29] MEDS: GABAPENTIN 100 MG CAPSULE PO SCH (20:20)
[2017-01-29 21:07] LABS: GLUCOSE,POINT OF CARE 90 MG/DL (70-110)
[2017-01-29 21:17] LABS: GLUCOSE,POINT OF CARE 129 MG/DL (70-110)
[2017-01-29] MEDS: MELATONIN 3 MG TABLET PO PRN (21:28)
[2017-01-29] MEDS: ACETAMINOPHEN 650 MG/20.3 ML SOLUTION UDCUP GT PRN (21:28)
[2017-01-29] MEDS: ONDANSETRON HCL 4 MG TABLET PO PRN (23:35)
[2017-01-30] VITALS: BP 124/61
[2017-01-30] MEDS: LEVOTHYROXINE SODIUM 25 MCG TABLET PO SCH (06:12)
[2017-01-30 06:27] LABS: GLUCOSE,POINT OF CARE 190 MG/DL (70-110)
[2017-01-30 07:43] VITALS: BP 120/62
[2017-01-30] MEDS: CHOLECALCIFEROL (VIT D3) 1,000 UNITS TABLET PO SCH (08:20)
[2017-01-30] MEDS: DOCUSATE SODIUM 100 MG CAPSULE PO SCH (08:20)
[2017-01-30] MEDS: AMIODARONE HCL 200 MG TABLET GT SCH (08:21)
[2017-01-30] MEDS: ASPIRIN 81 MG CHEWABLE TABLET GT SCH (08:21)
[2017-01-30] MEDS: HEPARIN SODIUM,PORCINE 5,000 UNITS/ML VIAL SQ SCH ×2 (08:21→20:42)
[2017-01-30] MEDS: GABAPENTIN 100 MG CAPSULE PO SCH ×3 (08:21→20:42)
[2017-01-30] MEDS: ATORVASTATIN CALCIUM 20 MG TABLET GT SCH (08:22)
[2017-01-30] MEDS: PredniSONE 5 MG TABLET GT SCH (08:22)
[2017-01-30] MEDS: FOLIC ACID 1 MG TABLET GT SCH (08:22)
[2017-01-30] MEDS: VITAMIN B COMP/VIT C/FOLIC ACID CAPSULE GT SCH (08:22)
[2017-01-30] MEDS: CYANOCOBALAMIN 500 MCG TABLET PO SCH (08:25)
[2017-01-30] MEDS: INSULIN ASPART 100 UNITS/ML SQ PRN ×3 (08:36→20:51)
[2017-01-30] MEDS: INSULIN DETEMIR 100 UNITS/ML SQ SCH (08:37)
[2017-01-30] MEDS: COLD CREAM, SKIN EMOLLIENT 340 GM JAR TP SCH ×2 (08:37→20:42)
[2017-01-30] MEDS ORDERED: ACETAMINOPHEN 325 MG TABLET PO PRN (10:07)
[2017-01-30] MEDS: ALBUTEROL SULFATE 2.5 MG/0.5 ML NEB SOLUTION NEB SCH ×4 (10:07→23:16)
[2017-01-30] MEDS: IPRATROPIUM BROMIDE 0.5 MG/2.5 ML NEB SOLUTION NEB SCH ×4 (10:07→23:15)
[2017-01-30 12:27] LABS: GLUCOSE COMMENT 1 Received Meds; GLUCOSE,POINT OF CARE 262 MG/DL (70-110)
[2017-01-30 15:13] VITALS: BP 119/59
[2017-01-30] MEDS: LACTULOSE 20 GM/30 ML SOLUTION UDCUP PO SCH (17:31)
[2017-01-30 18:02] LABS: GLUCOSE,POINT OF CARE 106 MG/DL (70-110)
[2017-01-30] MEDS ORDERED: WATER FOR IRRIGATION,STERILE 1000 ML SOLUTION BOTTLE ONE (19:09)
[2017-01-30] MEDS: FAMOTIDINE 20 MG TABLET PO SCH (20:41)
[2017-01-30] MEDS: ROPINIRole HCL 0.25 MG TABLET PO SCH (20:42)
[2017-01-30] MEDS: SENNA 187 MG TABLET PO SCH (20:42)
[2017-01-30 21:18] LABS: GLUCOSE,POINT OF CARE 153 MG/DL (70-110)
[2017-01-30] MEDS: MELATONIN 3 MG TABLET PO PRN (23:57)
[2017-01-31] VITALS: BP 139/78
[2017-01-31 05:48] LABS: GLUCOSE,POINT OF CARE 328 MG/DL (70-110)
[2017-01-31] MEDS: LEVOTHYROXINE SODIUM 25 MCG TABLET PO SCH (05:49)
[2017-01-31 07:06] LABS: CALCIUM, TOTAL 8.6 mg/dL (8.8-10.5); CREATININE 6.38 mg/dL (0.60-1.30); MAGNESIUM 2.3 mg/dL (1.80-2.40); POTASSIUM 4.8 mmol/L (3.5-5.1)
[2017-01-31 07:32] VITALS: BP 128/72
[2017-01-31] MEDS: ATORVASTATIN CALCIUM 20 MG TABLET PO SCH (08:02)
[2017-01-31] MEDS: HEPARIN SODIUM,PORCINE 5,000 UNITS/ML VIAL SQ SCH ×2 (08:02→20:27)
[2017-01-31] MEDS: EPOETIN ALFA 10,000 UNITS/ML VIAL SQ SCH (08:02)
[2017-01-31] MEDS: AMIODARONE HCL 200 MG TABLET PO SCH (08:03)
[2017-01-31] MEDS: FOLIC ACID 1 MG TABLET PO SCH (08:03)
[2017-01-31] MEDS: VITAMIN B COMP/VIT C/FOLIC ACID CAPSULE PO SCH (08:03)
[2017-01-31] MEDS: PredniSONE 5 MG TABLET PO SCH (08:03)
[2017-01-31] MEDS: CYANOCOBALAMIN 500 MCG TABLET PO SCH (08:03)
[2017-01-31] MEDS: GABAPENTIN 100 MG CAPSULE PO SCH ×3 (08:03→20:27)
[2017-01-31] MEDS: DOCUSATE SODIUM 100 MG CAPSULE PO SCH (08:03)
[2017-01-31] MEDS: COLD CREAM, SKIN EMOLLIENT 340 GM JAR TP SCH ×2 (08:04→20:28)
[2017-01-31] MEDS: ASPIRIN 81 MG CHEWABLE TABLET PO SCH (08:04)
[2017-01-31] MEDS: CHOLECALCIFEROL (VIT D3) 1,000 UNITS TABLET PO SCH (08:05)
[2017-01-31] MEDS: INSULIN ASPART 100 UNITS/ML SQ PRN ×3 (08:06→21:45)
[2017-01-31] MEDS: INSULIN DETEMIR 100 UNITS/ML SQ SCH (08:07)
[2017-01-31] MEDS: IPRATROPIUM BROMIDE 0.5 MG/2.5 ML NEB SOLUTION NEB SCH ×4 (09:00→21:21)
[2017-01-31] MEDS: ALBUTEROL SULFATE 2.5 MG/0.5 ML NEB SOLUTION NEB SCH ×4 (09:00→21:21)
[2017-01-31] MEDS ORDERED: HEPARIN SODIUM,PORCINE 1,000 UNITS/ML VIAL IVP ONE (12:00)
[2017-01-31] MEDS ORDERED: SODIUM CHLORIDE 0.9% 1,000 ML IV ONE ×2 (12:53)
[2017-01-31 12:56] LABS: GLUCOSE,POINT OF CARE 400 MG/DL (70-110)
[2017-01-31] MEDS: FLUTICASONE PROPIONATE 50 MCG/SPRAY 16 GM NASAL SPRAY NASAL SCH (12:56)
[2017-01-31 15:00] VITALS: BP 105/61
[2017-01-31 19:06] LABS: GLUCOSE,POINT OF CARE 123 MG/DL (70-110)
[2017-01-31] MEDS: LACTULOSE 20 GM/30 ML SOLUTION UDCUP PO SCH (19:52)
[2017-01-31] MEDS: ROPINIRole HCL 0.25 MG TABLET PO SCH (20:27)
[2017-01-31] MEDS: SENNA 187 MG TABLET PO SCH (20:27)
[2017-01-31] MEDS: FAMOTIDINE 20 MG TABLET PO SCH (20:28)
[2017-01-31 21:52] LABS: GLUCOSE COMMENT 1 Received Meds; GLUCOSE,POINT OF CARE 193 MG/DL (70-110)
[2017-01-31] MEDS: MELATONIN 3 MG TABLET PO PRN (23:57)
[2017-02-01] VITALS: BP 145/75
[2017-02-01] MEDS: LEVOTHYROXINE SODIUM 25 MCG TABLET PO SCH (05:56)
[2017-02-01 06:17] LABS: GLUCOSE COMMENT 1 Doctor Notified; GLUCOSE,POINT OF CARE 409 MG/DL (70-110)
[2017-02-01] MEDS: INSULIN ASPART 100 UNITS/ML SQ PRN ×4 (06:28→17:45)
[2017-02-01 07:39] VITALS: BP 99/54
[2017-02-01] MEDS: HEPARIN SODIUM,PORCINE 5,000 UNITS/ML VIAL SQ SCH ×2 (08:49→21:20)
[2017-02-01] MEDS: PredniSONE 5 MG TABLET PO SCH (08:50)
[2017-02-01] MEDS: CYANOCOBALAMIN 500 MCG TABLET PO SCH (08:50)
[2017-02-01] MEDS: FOLIC ACID 1 MG TABLET PO SCH (08:50)
[2017-02-01] MEDS: GABAPENTIN 100 MG CAPSULE PO SCH ×3 (08:50→21:19)
[2017-02-01] MEDS: DOCUSATE SODIUM 100 MG CAPSULE PO SCH (08:50)
[2017-02-01] MEDS: CHOLECALCIFEROL (VIT D3) 1,000 UNITS TABLET PO SCH (08:50)
[2017-02-01] MEDS: AMIODARONE HCL 200 MG TABLET PO SCH (08:50)
[2017-02-01] MEDS: ASPIRIN 81 MG CHEWABLE TABLET PO SCH (08:51)
[2017-02-01] MEDS: ATORVASTATIN CALCIUM 20 MG TABLET PO SCH (08:51)
[2017-02-01] MEDS: COLD CREAM, SKIN EMOLLIENT 340 GM JAR TP SCH ×2 (08:51→21:20)
[2017-02-01] MEDS: FLUTICASONE PROPIONATE 50 MCG/SPRAY 16 GM NASAL SPRAY NASAL SCH (08:55)
[2017-02-01] MEDS: VITAMIN B COMP/VIT C/FOLIC ACID CAPSULE PO SCH (08:57)
[2017-02-01] MEDS: INSULIN DETEMIR 100 UNITS/ML SQ SCH (08:59)
[2017-02-01] MEDS: ALBUTEROL SULFATE 2.5 MG/0.5 ML NEB SOLUTION NEB SCH ×4 (09:00→22:38)
[2017-02-01] MEDS: IPRATROPIUM BROMIDE 0.5 MG/2.5 ML NEB SOLUTION NEB SCH ×4 (09:00→22:38)
[2017-02-01 11:12] LABS: GLUCOSE,POINT OF CARE 172 MG/DL (70-110)
[2017-02-01 15:00] VITALS: BP 114/69
[2017-02-01 16:37] LABS: GLUCOSE,POINT OF CARE 176 MG/DL (70-110)
[2017-02-01] MEDS: LACTULOSE 20 GM/30 ML SOLUTION UDCUP PO SCH (17:45)
[2017-02-01 18:52] LABS: GLUCOSE COMMENT 1 Received Meds; GLUCOSE,POINT OF CARE 200 MG/DL (70-110)
[2017-02-01] MEDS: ROPINIRole HCL 0.25 MG TABLET PO SCH (21:19)
[2017-02-01] MEDS: SENNA 187 MG TABLET PO SCH (21:19)
[2017-02-01] MEDS: FAMOTIDINE 20 MG TABLET PO SCH (21:19)
[2017-02-01 21:32] LABS: GLUCOSE,POINT OF CARE 184 MG/DL (70-110)
[2017-02-01] MEDS: BISACODYL 10 MG RECTAL RECTAL SUPPOSITORY PR PRN (21:43)
[2017-02-02 00:58] VITALS: BP 129/56
[2017-02-02] MEDS: LEVOTHYROXINE SODIUM 25 MCG TABLET PO SCH (05:36)
[2017-02-02 05:52] LABS: GLUCOSE,POINT OF CARE 343 MG/DL (70-110)
[2017-02-02 07:20] VITALS: BP 136/73
[2017-02-02] MEDS: INSULIN ASPART 100 UNITS/ML SQ PRN ×3 (07:33→21:02)
[2017-02-02] MEDS: INSULIN DETEMIR 100 UNITS/ML SQ SCH ×2 (07:33→21:03)
[2017-02-02] MEDS: VITAMIN B COMP/VIT C/FOLIC ACID CAPSULE PO SCH (08:32)
[2017-02-02] MEDS: ATORVASTATIN CALCIUM 20 MG TABLET PO SCH (08:32)
[2017-02-02] MEDS: GABAPENTIN 100 MG CAPSULE PO SCH ×3 (08:33→21:00)
[2017-02-02] MEDS: AMIODARONE HCL 200 MG TABLET PO SCH (08:33)
[2017-02-02] MEDS: PredniSONE 5 MG TABLET PO SCH (08:34)
[2017-02-02] MEDS: CHOLECALCIFEROL (VIT D3) 1,000 UNITS TABLET PO SCH (08:34)
[2017-02-02] MEDS: DOCUSATE SODIUM 100 MG CAPSULE PO SCH (08:34)
[2017-02-02] MEDS: FOLIC ACID 1 MG TABLET PO SCH (08:35)
[2017-02-02] MEDS: FLUTICASONE PROPIONATE 50 MCG/SPRAY 16 GM NASAL SPRAY NASAL SCH (08:35)
[2017-02-02] MEDS: HEPARIN SODIUM,PORCINE 5,000 UNITS/ML VIAL SQ SCH ×2 (08:35→21:00)
[2017-02-02] MEDS: ASPIRIN 81 MG CHEWABLE TABLET PO SCH (08:35)
[2017-02-02] MEDS: CYANOCOBALAMIN 500 MCG TABLET PO SCH (08:36)
[2017-02-02] MEDS: EPOETIN ALFA 10,000 UNITS/ML VIAL SQ SCH (08:37)
[2017-02-02] MEDS: ALBUTEROL SULFATE 2.5 MG/0.5 ML NEB SOLUTION NEB SCH ×4 (08:40→21:23)
[2017-02-02] MEDS: IPRATROPIUM BROMIDE 0.5 MG/2.5 ML NEB SOLUTION NEB SCH ×4 (08:40→21:23)
[2017-02-02] MEDS: COLD CREAM, SKIN EMOLLIENT 340 GM JAR TP SCH ×2 (08:41→21:05)
[2017-02-02] MEDS ORDERED: SODIUM CL IRRIG SOLN BOTTLE 250 ML IRRIG ONE (09:06)
[2017-02-02] MEDS ORDERED: HEPARIN SODIUM,PORCINE 1,000 UNITS/ML VIAL IVP ONE ×3 (12:00→18:45)
[2017-02-02 12:12] LABS: GLUCOSE,POINT OF CARE 485 MG/DL (70-110)
[2017-02-02 12:22] LABS: GLUCOSE COMMENT 1 Doctor Notified; GLUCOSE,POINT OF CARE 530 MG/DL (70-110)
[2017-02-02 13:31] LABS: GLUCOSE COMMENT 1 Doctor Notified; GLUCOSE,POINT OF CARE 414 MG/DL (70-110)
[2017-02-02] MEDS ORDERED: SODIUM CHLORIDE 0.9% 1,000 ML IV ONE ×2 (14:23)
[2017-02-02] MEDS: LACTULOSE 20 GM/30 ML SOLUTION UDCUP PO SCH (19:02)
[2017-02-02 19:24] VITALS: BP 135/61
[2017-02-02 19:36] LABS: GLUCOSE,POINT OF CARE 169 MG/DL (70-110)
[2017-02-02] MEDS: SENNA 187 MG TABLET PO SCH (20:59)
[2017-02-02] MEDS: ROPINIRole HCL 0.25 MG TABLET PO SCH (20:59)
[2017-02-02] MEDS: FAMOTIDINE 20 MG TABLET PO SCH (21:00)
[2017-02-02] MEDS: MELATONIN 3 MG TABLET PO PRN (21:07)
[2017-02-02] MEDS: BUDESONIDE 0.5 MG/2 ML NEB SOLUTION NEB SCH (21:23)
[2017-02-02 22:22] LABS: GLUCOSE,POINT OF CARE 204 MG/DL (70-110)
[2017-02-03] VITALS: BP 146/71
[2017-02-03] MEDS: LEVOTHYROXINE SODIUM 25 MCG TABLET PO SCH (05:50)
[2017-02-03 07:01] VITALS: BP 135/71
[2017-02-03] MEDS: FLUTICASONE PROPIONATE 50 MCG/SPRAY 16 GM NASAL SPRAY NASAL SCH (07:50)
[2017-02-03] MEDS: CYANOCOBALAMIN 500 MCG TABLET PO SCH (07:50)
[2017-02-03] MEDS: GABAPENTIN 100 MG CAPSULE PO SCH ×3 (07:50→20:50)
[2017-02-03] MEDS: AMIODARONE HCL 200 MG TABLET PO SCH (07:51)
[2017-02-03] MEDS: CHOLECALCIFEROL (VIT D3) 1,000 UNITS TABLET PO SCH (07:51)
[2017-02-03] MEDS: ASPIRIN 81 MG CHEWABLE TABLET PO SCH (07:51)
[2017-02-03] MEDS: ATORVASTATIN CALCIUM 20 MG TABLET PO SCH (07:51)
[2017-02-03] MEDS: FOLIC ACID 1 MG TABLET PO SCH (07:51)
[2017-02-03] MEDS: PredniSONE 5 MG TABLET PO SCH (07:52)
[2017-02-03] MEDS: DOCUSATE SODIUM 100 MG CAPSULE PO SCH (07:53)
[2017-02-03] MEDS: VITAMIN B COMP/VIT C/FOLIC ACID CAPSULE PO SCH (07:53)
[2017-02-03] MEDS: HEPARIN SODIUM,PORCINE 5,000 UNITS/ML VIAL SQ SCH ×2 (07:54→20:49)
[2017-02-03] MEDS: INSULIN ASPART 100 UNITS/ML SQ PRN ×3 (08:09→20:53)
[2017-02-03] MEDS: COLD CREAM, SKIN EMOLLIENT 340 GM JAR TP SCH ×2 (08:10→20:53)
[2017-02-03] MEDS: INSULIN DETEMIR 100 UNITS/ML SQ SCH ×2 (08:10→20:52)
[2017-02-03] MEDS: DOCUSATE SODIUM 283 MG/5 ML MINI-ENEMA PR PRN (08:44)
[2017-02-03] MEDS: BUDESONIDE 0.5 MG/2 ML NEB SOLUTION NEB SCH ×2 (08:45→21:01)
[2017-02-03 12:07] LABS: GLUCOSE COMMENT 1 Received Meds; GLUCOSE,POINT OF CARE 323 MG/DL (70-110)
[2017-02-03 15:10] VITALS: BP 122/46
[2017-02-03] MEDS: LACTULOSE 20 GM/30 ML SOLUTION UDCUP PO SCH (17:14)
[2017-02-03 18:42] LABS: GLUCOSE,POINT OF CARE 111 MG/DL (70-110)
[2017-02-03] MEDS: SENNA 187 MG TABLET PO SCH (20:50)
[2017-02-03] MEDS: ROPINIRole HCL 0.25 MG TABLET PO SCH (20:50)
[2017-02-03] MEDS: FAMOTIDINE 20 MG TABLET PO SCH (20:50)
[2017-02-03] MEDS: IPRATROPIUM BROMIDE 0.5 MG/2.5 ML NEB SOLUTION NEB PRN (21:01)
[2017-02-03] MEDS: ALBUTEROL SULFATE 2.5 MG/0.5 ML NEB SOLUTION NEB PRN (21:01)
[2017-02-03 21:27] LABS: GLUCOSE,POINT OF CARE 194 MG/DL (70-110)
[2017-02-04] VITALS: BP 122/64
[2017-02-04 03:07] LABS: GLUCOSE COMMENT 1 Received Meds; GLUCOSE,POINT OF CARE 225 MG/DL (70-110)
[2017-02-04] MEDS: DOCUSATE SODIUM 283 MG/5 ML MINI-ENEMA PR PRN (05:39)
[2017-02-04] MEDS: LEVOTHYROXINE SODIUM 25 MCG TABLET PO SCH (05:56)
[2017-02-04 06:07] LABS: GLUCOSE,POINT OF CARE 170 MG/DL (70-110)
[2017-02-04 07:00] VITALS: BP 106/69
[2017-02-04] MEDS: FLUTICASONE PROPIONATE 50 MCG/SPRAY 16 GM NASAL SPRAY NASAL SCH (07:51)
[2017-02-04] MEDS: PredniSONE 5 MG TABLET PO SCH (07:52)
[2017-02-04] MEDS: ASPIRIN 81 MG CHEWABLE TABLET PO SCH (07:52)
[2017-02-04] MEDS: GABAPENTIN 100 MG CAPSULE PO SCH ×3 (07:52→21:06)
[2017-02-04] MEDS: VITAMIN B COMP/VIT C/FOLIC ACID CAPSULE PO SCH (07:52)
[2017-02-04] MEDS: ATORVASTATIN CALCIUM 20 MG TABLET PO SCH (07:52)
[2017-02-04] MEDS: AMIODARONE HCL 200 MG TABLET PO SCH (07:52)
[2017-02-04] MEDS: CHOLECALCIFEROL (VIT D3) 1,000 UNITS TABLET PO SCH (07:52)
[2017-02-04] MEDS: FOLIC ACID 1 MG TABLET PO SCH (07:52)
[2017-02-04] MEDS: DOCUSATE SODIUM 250 MG CAPSULE PO SCH (07:52)
[2017-02-04] MEDS: CYANOCOBALAMIN 500 MCG TABLET PO SCH (07:53)
[2017-02-04] MEDS: HEPARIN SODIUM,PORCINE 5,000 UNITS/ML VIAL SQ SCH ×2 (07:53→21:06)
[2017-02-04] MEDS: COLD CREAM, SKIN EMOLLIENT 340 GM JAR TP SCH ×2 (07:57→21:09)
[2017-02-04] MEDS: INSULIN ASPART 100 UNITS/ML SQ PRN ×4 (08:04→21:08)
[2017-02-04] MEDS: INSULIN DETEMIR 100 UNITS/ML SQ SCH ×2 (08:05→21:07)
[2017-02-04] MEDS: BUDESONIDE 0.5 MG/2 ML NEB SOLUTION NEB SCH ×2 (09:59→21:46)
[2017-02-04 11:47] LABS: GLUCOSE COMMENT 1 Received Meds; GLUCOSE,POINT OF CARE 376 MG/DL (70-110)
[2017-02-04 15:02] VITALS: BP 118/58
[2017-02-04] MEDS: LACTULOSE 20 GM/30 ML SOLUTION UDCUP PO SCH (17:01)
[2017-02-04] MEDS ORDERED: WATER FOR IRRIGATION,STERILE 1000 ML SOLUTION BOTTLE ONE (17:07)
[2017-02-04 17:22] LABS: GLUCOSE,POINT OF CARE 165 MG/DL (70-110)
[2017-02-04] MEDS: SENNA 187 MG TABLET PO SCH (21:06)
[2017-02-04] MEDS: ROPINIRole HCL 0.25 MG TABLET PO SCH (21:06)
[2017-02-04] MEDS: FAMOTIDINE 20 MG TABLET PO SCH (21:06)
[2017-02-04 21:18] LABS: GLUCOSE,POINT OF CARE 158 MG/DL (70-110)
[2017-02-04] MEDS: IPRATROPIUM BROMIDE 0.5 MG/2.5 ML NEB SOLUTION NEB PRN (21:46)
[2017-02-04] MEDS: ALBUTEROL SULFATE 2.5 MG/0.5 ML NEB SOLUTION NEB PRN (21:46)
[2017-02-04] MEDS: IPRATROPIUM BROMIDE 0.5 MG/2.5 ML NEB SOLUTION NEB SCH (23:00)
[2017-02-04] MEDS: ALBUTEROL SULFATE 2.5 MG/0.5 ML NEB SOLUTION NEB SCH (23:00)
[2017-02-04 23:30] VITALS: BP 113/55
[2017-02-05] MEDS: ALBUTEROL SULFATE 2.5 MG/0.5 ML NEB SOLUTION NEB SCH ×6 (04:15→22:59)
[2017-02-05] MEDS: IPRATROPIUM BROMIDE 0.5 MG/2.5 ML NEB SOLUTION NEB SCH ×6 (04:16→22:59)
[2017-02-05] MEDS: LEVOTHYROXINE SODIUM 25 MCG TABLET PO SCH (06:07)
[2017-02-05 06:37] LABS: GLUCOSE COMMENT 1 Doctor Notified; GLUCOSE,POINT OF CARE 37 MG/DL (70-110)
[2017-02-05 06:42] LABS: GLUCOSE,POINT OF CARE 76 MG/DL (70-110)
[2017-02-05] MEDS: BUDESONIDE 0.5 MG/2 ML NEB SOLUTION NEB SCH ×2 (07:06→19:09)
[2017-02-05 07:28] VITALS: BP 149/54
[2017-02-05] MEDS: VITAMIN B COMP/VIT C/FOLIC ACID CAPSULE PO SCH (08:17)
[2017-02-05] MEDS: PredniSONE 5 MG TABLET PO SCH (08:17)
[2017-02-05] MEDS: CHOLECALCIFEROL (VIT D3) 1,000 UNITS TABLET PO SCH (08:17)
[2017-02-05] MEDS: DOCUSATE SODIUM 250 MG CAPSULE PO SCH (08:17)
[2017-02-05] MEDS: ASPIRIN 81 MG CHEWABLE TABLET PO SCH (08:17)
[2017-02-05] MEDS: CYANOCOBALAMIN 500 MCG TABLET PO SCH (08:17)
[2017-02-05] MEDS: AMIODARONE HCL 200 MG TABLET PO SCH (08:17)
[2017-02-05] MEDS: GABAPENTIN 100 MG CAPSULE PO SCH ×3 (08:17→21:41)
[2017-02-05] MEDS: FOLIC ACID 1 MG TABLET PO SCH (08:17)
[2017-02-05] MEDS: ATORVASTATIN CALCIUM 20 MG TABLET PO SCH (08:17)
[2017-02-05] MEDS: FLUTICASONE PROPIONATE 50 MCG/SPRAY 16 GM NASAL SPRAY NASAL SCH (08:18)
[2017-02-05] MEDS: EPOETIN ALFA 10,000 UNITS/ML VIAL SQ SCH (08:18)
[2017-02-05] MEDS: HEPARIN SODIUM,PORCINE 5,000 UNITS/ML VIAL SQ SCH ×2 (08:18→21:56)
[2017-02-05] MEDS: COLD CREAM, SKIN EMOLLIENT 340 GM JAR TP SCH ×2 (08:23→21:54)
[2017-02-05] MEDS: INSULIN DETEMIR 100 UNITS/ML SQ SCH ×2 (09:00→21:54)
[2017-02-05] MEDS: IPRATROPIUM BROMIDE 0.5 MG/2.5 ML NEB SOLUTION NEB PRN (09:12)
[2017-02-05] MEDS: ALBUTEROL SULFATE 2.5 MG/0.5 ML NEB SOLUTION NEB PRN (09:12)
[2017-02-05 11:48] LABS: GLUCOSE COMMENT 1 Received Meds; GLUCOSE,POINT OF CARE 411 MG/DL (70-110)
[2017-02-05] MEDS ORDERED: HEPARIN SODIUM,PORCINE 1,000 UNITS/ML VIAL IVP ONE (12:00)
[2017-02-05] MEDS: INSULIN ASPART 100 UNITS/ML SQ PRN ×3 (12:55→21:53)
[2017-02-05] MEDS ORDERED: SODIUM CHLORIDE 0.9% 2,000 ML IV ONE (12:55)
[2017-02-05] MEDS: LACTULOSE 20 GM/30 ML SOLUTION UDCUP PO SCH (17:48)
[2017-02-05 21:01] VITALS: BP 155/79
[2017-02-05] MEDS: SENNA 187 MG TABLET PO SCH (21:41)
[2017-02-05] MEDS: ROPINIRole HCL 0.25 MG TABLET PO SCH (21:41)
[2017-02-05] MEDS: FAMOTIDINE 20 MG TABLET PO SCH (21:42)
[2017-02-05] MEDS: MELATONIN 3 MG TABLET PO PRN (21:42)
[2017-02-05 23:13] LABS: GLUCOSE,POINT OF CARE 198 MG/DL (70-110)
[2017-02-05 23:13] LABS: GLUCOSE,POINT OF CARE 392 MG/DL (70-110)
[2017-02-06] VITALS: BP 135/77
[2017-02-06] MEDS: IPRATROPIUM BROMIDE 0.5 MG/2.5 ML NEB SOLUTION NEB SCH ×6 (03:00→22:59)
[2017-02-06] MEDS: ALBUTEROL SULFATE 2.5 MG/0.5 ML NEB SOLUTION NEB SCH ×6 (03:00→22:59)
[2017-02-06] MEDS: LEVOTHYROXINE SODIUM 25 MCG TABLET PO SCH (05:55)
[2017-02-06 05:58] LABS: GLUCOSE,POINT OF CARE 305 MG/DL (70-110)
[2017-02-06 07:16] VITALS: BP 135/93
[2017-02-06] MEDS: FLUTICASONE PROPIONATE 50 MCG/SPRAY 16 GM NASAL SPRAY NASAL SCH (08:34)
[2017-02-06] MEDS: HEPARIN SODIUM,PORCINE 5,000 UNITS/ML VIAL SQ SCH ×2 (08:34→20:58)
[2017-02-06] MEDS: PredniSONE 5 MG TABLET PO SCH (08:34)
[2017-02-06] MEDS: DOCUSATE SODIUM 250 MG CAPSULE PO SCH (08:34)
[2017-02-06] MEDS: CHOLECALCIFEROL (VIT D3) 1,000 UNITS TABLET PO SCH (08:34)
[2017-02-06] MEDS: ASPIRIN 81 MG CHEWABLE TABLET PO SCH (08:34)
[2017-02-06] MEDS: ATORVASTATIN CALCIUM 20 MG TABLET PO SCH (08:34)
[2017-02-06] MEDS: GABAPENTIN 100 MG CAPSULE PO SCH ×3 (08:34→20:57)
[2017-02-06] MEDS: AMIODARONE HCL 200 MG TABLET PO SCH (08:34)
[2017-02-06] MEDS: FOLIC ACID 1 MG TABLET PO SCH (08:34)
[2017-02-06] MEDS: VITAMIN B COMP/VIT C/FOLIC ACID CAPSULE PO SCH (08:35)
[2017-02-06] MEDS: CYANOCOBALAMIN 500 MCG TABLET PO SCH (08:35)
[2017-02-06] MEDS: COLD CREAM, SKIN EMOLLIENT 340 GM JAR TP SCH ×2 (08:44→21:02)
[2017-02-06] MEDS: INSULIN ASPART 100 UNITS/ML SQ PRN ×4 (08:44→20:59)
[2017-02-06] MEDS: INSULIN DETEMIR 100 UNITS/ML SQ SCH (08:44)
[2017-02-06] MEDS: BUDESONIDE 0.5 MG/2 ML NEB SOLUTION NEB SCH ×2 (09:00→22:01)
[2017-02-06 15:53] LABS: GLUCOSE,POINT OF CARE 324 MG/DL (70-110)
[2017-02-06 15:53] LABS: GLUCOSE,POINT OF CARE 224 MG/DL (70-110)
[2017-02-06 16:05] VITALS: BP 100/60
[2017-02-06] MEDS: LACTULOSE 20 GM/30 ML SOLUTION UDCUP PO SCH (17:30)
[2017-02-06 17:52] LABS: GLUCOSE,POINT OF CARE 162 MG/DL (70-110)
[2017-02-06] MEDS: SENNA 187 MG TABLET PO SCH (20:57)
[2017-02-06] MEDS: FAMOTIDINE 20 MG TABLET PO SCH (20:57)
[2017-02-06] MEDS ORDERED: ROPINIRole HCL 1 MG TABLET PO SCH (21:00)
[2017-02-06] MEDS ORDERED: INSULIN DETEMIR 100 UNITS/ML SQ SCH (21:00)
[2017-02-06 22:03] LABS: GLUCOSE,POINT OF CARE 142 MG/DL (70-110)
[2017-02-07] VITALS: BP 124/53
[2017-02-07] MEDS: MELATONIN 3 MG TABLET PO PRN (00:06)
[2017-02-07] MEDS: ALBUTEROL SULFATE 2.5 MG/0.5 ML NEB SOLUTION NEB SCH ×5 (03:00→19:17)
[2017-02-07] MEDS: IPRATROPIUM BROMIDE 0.5 MG/2.5 ML NEB SOLUTION NEB SCH ×5 (03:00→19:17)
[2017-02-07] MEDS: ALBUTEROL SULFATE 2.5 MG/0.5 ML NEB SOLUTION NEB PRN (05:15)
[2017-02-07] MEDS: IPRATROPIUM BROMIDE 0.5 MG/2.5 ML NEB SOLUTION NEB PRN (05:15)
[2017-02-07 05:47] LABS: GLUCOSE,POINT OF CARE 176 MG/DL (70-110)
[2017-02-07] MEDS: LEVOTHYROXINE SODIUM 25 MCG TABLET PO SCH (05:55)
[2017-02-07] MEDS: ONDANSETRON HCL 4 MG TABLET PO PRN (06:20)
[2017-02-07 07:11] VITALS: BP 143/65
[2017-02-07] MEDS: ATORVASTATIN CALCIUM 20 MG TABLET PO SCH (07:52)
[2017-02-07] MEDS: CHOLECALCIFEROL (VIT D3) 1,000 UNITS TABLET PO SCH (07:52)
[2017-02-07] MEDS: DOCUSATE SODIUM 250 MG CAPSULE PO SCH (07:53)
[2017-02-07] MEDS: AMIODARONE HCL 200 MG TABLET PO SCH (07:53)
[2017-02-07] MEDS: GABAPENTIN 100 MG CAPSULE PO SCH ×2 (07:53→19:25)
[2017-02-07] MEDS: VITAMIN B COMP/VIT C/FOLIC ACID CAPSULE PO SCH (07:53)
[2017-02-07] MEDS: CYANOCOBALAMIN 500 MCG TABLET PO SCH (07:53)
[2017-02-07] MEDS: PredniSONE 5 MG TABLET PO SCH (07:53)
[2017-02-07] MEDS: ASPIRIN 81 MG CHEWABLE TABLET PO SCH (07:54)
[2017-02-07] MEDS: HEPARIN SODIUM,PORCINE 5,000 UNITS/ML VIAL SQ SCH (07:54)
[2017-02-07] MEDS: FOLIC ACID 1 MG TABLET PO SCH (07:59)
[2017-02-07] MEDS: EPOETIN ALFA 10,000 UNITS/ML VIAL SQ SCH (08:36)
[2017-02-07] MEDS: BUDESONIDE 0.5 MG/2 ML NEB SOLUTION NEB SCH ×2 (09:00→19:17)
[2017-02-07] MEDS ORDERED: CETIRIZINE HCL 10 MG TABLET PO SCH ×2 (09:00)
[2017-02-07] MEDS ORDERED: INSULIN DETEMIR 100 UNITS/ML SQ SCH (09:00)
[2017-02-07] MEDS ORDERED: SODIUM CHLORIDE 0.9% 2,000 ML IV ONE (12:03)
[2017-02-07] MEDS ORDERED: IOVERSOL 350 MG/ML 150 ML VIAL ONE (12:56)
[2017-02-07] MEDS: INSULIN ASPART 100 UNITS/ML SQ PRN ×2 (14:08→19:22)
[2017-02-07] MEDS: COLD CREAM, SKIN EMOLLIENT 340 GM JAR TP SCH (14:09)
[2017-02-07 14:26] VITALS: BP 112/43
[2017-02-07 14:27] LABS: GLUCOSE,POINT OF CARE 376 MG/DL (70-110)
[2017-02-07 14:27] LABS: GLUCOSE,POINT OF CARE 402 MG/DL (70-110)
[2017-02-07 14:55] VITALS: BP 110/71
[2017-02-07] MEDS: LACTULOSE 20 GM/30 ML SOLUTION UDCUP PO SCH (18:00)
[2017-02-07 18:40] VITALS: BP_SYST 109; BP_SYST 9; BP_DIAS 37
[2017-02-07 19:12] LABS: GLUCOSE,POINT OF CARE 186 MG/DL (70-110)
[2017-02-07] MEDS ORDERED: HEPARIN SODIUM,PORCINE 1,000 UNITS/ML VIAL IVP ONE (19:59)
[2017-02-07] MEDS ORDERED: MANNITOL 25%-12.5 GM/50 ML VIAL IVP ONE (19:59)
[2017-02-08 03:57] LABS: GLUCOSE,POINT OF CARE 275 MG/DL (70-110)
== END 2017-02-07 20:00 | disposition short-term general hospital (02) | DRG 637 ==
LOC: 2WR 21:00
PROC: 5A1D60Z (ICD-10-PCS; principal; 2017-01-26)
PROC: 5A09357 Assistance with Respiratory Ventilation, Less than 24 Consecutive Hours, Continuous Positive Airway Pressure (ICD-10-PCS; 2017-02-04)
DX: E10.649 Type 1 diabetes mellitus with hypoglycemia without coma (principal); J96.91 Respiratory failure, unspecified with hypoxia; I46.9 Cardiac arrest, cause unspecified; J18.9 Pneumonia, unspecified organism; I12.0 Hypertensive chronic kidney disease with stage 5 chronic kidney disease or end stage renal disease; E87.1 Hypo-osmolality and hyponatremia; Z94.0 Kidney transplant status; T86.12 Kidney transplant failure; J90 Pleural effusion, not elsewhere classified; N18.6 End stage renal disease; I82.621 Acute embolism and thrombosis of deep veins of right upper extremity; G93.1 Anoxic brain damage, not elsewhere classified; G47.33 Obstructive sleep apnea (adult) (pediatric); J45.909 Unspecified asthma, uncomplicated; E78.5 Hyperlipidemia, unspecified; E83.51 Hypocalcemia; D63.8 Anemia in other chronic diseases classified elsewhere; G40.909 Epilepsy, unspecified, not intractable, without status epilepticus; F32.9 Major depressive disorder, single episode, unspecified; F41.9 Anxiety disorder, unspecified; I48.91 Unspecified atrial fibrillation; E10.22 Type 1 diabetes mellitus with diabetic chronic kidney disease; E03.9 Hypothyroidism, unspecified; E10.21 Type 1 diabetes mellitus with diabetic nephropathy; T38.0X5A Adverse effect of glucocorticoids and synthetic analogues, initial encounter; Y95 Nosocomial condition; E10.40 Type 1 diabetes mellitus with diabetic neuropathy, unspecified; E10.65 Type 1 diabetes mellitus with hyperglycemia; G25.81 Restless legs syndrome; D63.1 Anemia in chronic kidney disease; Z93.1 Gastrostomy status; G47.00 Insomnia, unspecified; E55.9 Vitamin D deficiency, unspecified; D64.9 Anemia, unspecified; E87.5 Hyperkalemia; R13.10 Dysphagia, unspecified; F43.20 Adjustment disorder, unspecified; R06.00 Dyspnea, unspecified; F43.23 Adjustment disorder with mixed anxiety and depressed mood; J44.9 Chronic obstructive pulmonary disease, unspecified; Z99.2 Dependence on renal dialysis; Z93.0 Tracheostomy status; Z79.4 Long term (current) use of insulin; Z79.82 Long term (current) use of aspirin; Z87.891 Personal history of nicotine dependence; Z80.9 Family history of malignant neoplasm, unspecified; Z83.3 Family history of diabetes mellitus; Z82.49 Family history of ischemic heart disease and other diseases of the circulatory system; Z80.8 Family history of malignant neoplasm of other organs or systems
CPT/HCPCS: 70491; 71020; 71250; 71275; 74000; 74230; 82306; 82805; 82947; 82962; 83036; 83540; 83550; 83735; 83970; 84100; 84439; 84443; 85379; 87081; 87340; 90935; 92507; 92508; 92526; 92610; 92611; 93306; 93971; 94640; 94799; 97110; 97112; 97116; 97163; 97167; 97530; 97535; 99366; G0238; J0885; J1644; J1815; J2150; J7030; Q0162

== ENCOUNTER 2017-02-07 20:55 | Inpatient (IN) | payer MEDICARE, MEDICAID ==
[~2017-02-07] VITALS: Ht 160 cm; Wt 76.1 kg
[~2017-02-07 20:55] MED LIST: CARV6 PO; FURO40 PO; INSNOV SQ; INSU100V12 SQ; PRAV40 PO; PRED5 PO; SEVEC800 PO; TACR.5 PO
[2017-02-07] MEDS ORDERED: ACETAMINOPHEN 650 MG/20.3 ML SOLUTION UDCUP PO PRN (21:45)
[2017-02-07] MEDS ORDERED: DEXTROSE 50%-WATER 25 GM/50 ML SYRINGE IVP PRN (21:45)
[2017-02-07] MEDS ORDERED: ZOLPIDEM TARTRATE 5 MG TABLET PO PRN (21:45)
[2017-02-07] MEDS ORDERED: MELATONIN 3 MG TABLET PO PRN (21:45)
[2017-02-07] MEDS ORDERED: VANCOMYCIN HCL 1 GM/D5% WATER 200 ML IV SCH (21:45)
[2017-02-07] MEDS ORDERED: BISACODYL 10 MG RECTAL RECTAL SUPPOSITORY PR PRN (21:45)
[2017-02-07] MEDS ORDERED: ONDANSETRON HCL 4 MG TABLET PO PRN (21:45)
[2017-02-07 22:20] VITALS: BP 152/78
[2017-02-07] MEDS ORDERED: VANCOMYCIN HCL 1 GM/D5% WATER 200 ML IV PRN (22:30)
[2017-02-07] MEDS ORDERED: VANCOMYCIN HCL 1.5 GM in DEXTROSE 5%-WATER 250 ML IV ONE (22:30)
[2017-02-07] MEDS: FAMOTIDINE 20 MG TABLET PO SCH (22:56)
[2017-02-07] MEDS: ROPINIRole HCL 1 MG TABLET PO SCH (22:57)
[2017-02-07] MEDS: ATORVASTATIN CALCIUM 20 MG TABLET PO SCH (23:03)
[2017-02-07] MEDS: SENNA 218 MG/5 ML SYRUP ORAL.SYG PO SCH (23:03)
[2017-02-07] MEDS: INSULIN DETEMIR 100 UNITS/ML SQ SCH (23:04)
[2017-02-07 23:39] VITALS: BP 157/85
[2017-02-08] VITALS (8 sets, daily range): BP systolic 104–140; BP diastolic 50–86
[2017-02-08] MEDS: IPRATROPIUM BROMIDE 0.5 MG/2.5 ML NEB SOLUTION NEB PRN ×3 (00:46→08:40)
[2017-02-08] MEDS: ALBUTEROL SULFATE 2.5 MG/0.5 ML NEB SOLUTION NEB PRN ×2 (00:46→05:07)
[2017-02-08] MEDS: PIPERACILLIN SODIUM/TAZOBACTAM 2.25 GM in DEXTROSE 5%-WATER 50 ML IV SCH ×3 (01:26→15:29)
[2017-02-08] MEDS ORDERED: 0.9% SODIUM CHLORIDE 5 ML NEB SOLUTION NEB ONE (05:04)
[2017-02-08] MEDS: LEVOTHYROXINE SODIUM 25 MCG TABLET PO SCH (06:15)
[2017-02-08] MEDS: INSULIN ASPART 100 UNITS/ML SQ PRN ×4 (06:25→21:15)
[2017-02-08] MEDS: INSULIN DETEMIR 100 UNITS/ML SQ SCH ×3 (06:26→21:13)
[2017-02-08 07:32] LABS: GLUCOSE,POINT OF CARE 329 MG/DL (70-110)
[2017-02-08 08:50] LABS: BASOPHILS % (AUTO) 1.5 % (0.0-2.0); EOSINOPHILS % (AUTO) 5.5 % (1.0-6.0); HEMATOCRIT 29.8 % (41-53); LYMPHOCYTES # (AUTO) 1.3 K/uL (1.0-4.8); LYMPHOCYTES % (AUTO) 14.7 % (22.0-44.0); MEAN CORPUSCULAR HEMOGLOBIN 25.1 pg (26.0-34.0); MEAN CORPUSCULAR HGB CONC 30.1 G/dL (31.0-37.0); MEAN CORPUSCULAR VOLUME 83 fL (80-100); MONOCYTES # (AUTO) 0.5 K/uL (0.1-1.0); MONOCYTES % (AUTO) 5.6 % (2.0-9.0); NEUTROPHILS # (AUTO) 6.3 K/uL (1.8-7.7); NEUTROPHILS % (AUTO) 72.7 % (40.0-70.0); PLATELET COUNT (AUTO) 165 K/uL (150-450); RED BLOOD CELL COUNT(AUTO) 3.58 MIL/uL (4.50-5.90); RED CELL DISTRIBUTION WIDTH 20.8 % (11.5-14.5); WHITE BLOOD COUNT (AUTO) 8.7 K/uL (4.5-11.0)
[2017-02-08 09:16] LABS: VITAMIN B12 LEVEL 1870 pg/mL (211-911)
[2017-02-08 09:20] LABS: RBC MORPHOLOGY COMMENT ABNORMAL RBC MORPH
[2017-02-08 09:21] LABS: ALANINE AMINOTRANSFERASE 12 U/L (12-78); ANION GAP 10 mmol/L (8-16); ASPARTATE AMINOTRANSFERASE 85 U/L (15-37); BILIRUBIN,TOTAL 0.3 mg/dL (0.1-1.0); CALCIUM, TOTAL 8.5 mg/dL (8.8-10.5); CARBON DIOXIDE 23 mmol/L (22-29); CHLORIDE 96 mmol/L (98-107); CHOL/HDL RATIO 1.7 (4.2-7.3); CREATINE KINASE, TOTAL 63 U/L (39-308); CREATININE 5.15 mg/dL (0.60-1.30); GLOMERULAR FILTR. RATE CALC 12 mL/min (>60); POTASSIUM 5.4 mmol/L (3.5-5.1); SODIUM SERUM 129 mmol/L (136-145); THYROID STIMULATING HORMONE 4.86 uIU/mL (0.36-3.74); TOTAL PROTEIN, SERUM 6.6 g/dL (6.4-8.2); UREA NITROGEN, BLOOD 44 mg/dL (7-18)
[2017-02-08 09:53] LABS: PROCALCITONIN (PCT) 2.23 ng/mL (<0.50)
[2017-02-08] MEDS: APIXABAN 2.5 MG TABLET PO SCH ×2 (10:00→21:02)
[2017-02-08] MEDS: PredniSONE 5 MG TABLET PO SCH (10:00)
[2017-02-08] MEDS: DOCUSATE SODIUM 250 MG CAPSULE PO SCH (10:00)
[2017-02-08] MEDS: VITAMIN B COMP/VIT C/FOLIC ACID CAPSULE PO SCH (10:01)
[2017-02-08] MEDS: CHOLECALCIFEROL (VIT D3) 1,000 UNITS TABLET PO SCH (10:01)
[2017-02-08] MEDS: FOLIC ACID 1 MG TABLET PO SCH (10:01)
[2017-02-08] MEDS: GABAPENTIN 100 MG CAPSULE PO SCH ×3 (10:01→21:04)
[2017-02-08] MEDS: CETIRIZINE HCL 10 MG TABLET PO SCH (10:01)
[2017-02-08] MEDS: AMIODARONE HCL 200 MG TABLET PO SCH (10:01)
[2017-02-08 10:38] LABS: ABG A-A DIFF O2 41.3 mmHg (10-20.0); ABG BASE EXCESS -1.4 mmol/L (-2.0-3.0); ABG HCO3 23.2 mmol/L (22.0-26.0); ABG OXYHEMOGLOBIN 96.8 % (94.0-100.0); ABG PCO2 48 mmHg (35-45); ABG PH 7.328 (7.35-7.450)
[2017-02-08 10:40] LABS: ALLEN TEST, BLOOD GAS Positive
[2017-02-08] MEDS: IPRATROPIUM BROMIDE 0.5 MG/2.5 ML NEB SOLUTION NEB SCH ×4 (11:19→23:34)
[2017-02-08] MEDS: ALBUTEROL SULFATE 2.5 MG/0.5 ML NEB SOLUTION NEB SCH ×4 (11:19→23:34)
[2017-02-08] MEDS ORDERED: ROPINIRole HCL 1 MG TABLET PO SCH (21:00)
[2017-02-08] MEDS ORDERED: FAMOTIDINE 20 MG TABLET PO SCH (21:00)
[2017-02-08] MEDS ORDERED: ATORVASTATIN CALCIUM 20 MG TABLET PO SCH (21:00)
[2017-02-08] MEDS ORDERED: SENNA 218 MG/5 ML SYRUP ORAL.SYG PO SCH (21:00)
[2017-02-08] MEDS ORDERED: INSULIN DETEMIR 100 UNITS/ML SQ SCH (21:00)
[2017-02-08] MEDS: FAMOTIDINE 20 MG TABLET PO SCH (21:02)
[2017-02-08] MEDS: ROPINIRole HCL 1 MG TABLET PO SCH (21:02)
[2017-02-08] MEDS: ATORVASTATIN CALCIUM 20 MG TABLET PO SCH (21:03)
[2017-02-08] MEDS: SENNA 218 MG/5 ML SYRUP ORAL.SYG PO SCH (21:04)
[2017-02-09] MEDS: PIPERACILLIN SODIUM/TAZOBACTAM 2.25 GM in DEXTROSE 5%-WATER 50 ML IV SCH ×3 (00:31→15:31)
[2017-02-09] MEDS: ALBUTEROL SULFATE 2.5 MG/0.5 ML NEB SOLUTION NEB SCH ×6 (02:41→23:15)
[2017-02-09] MEDS: IPRATROPIUM BROMIDE 0.5 MG/2.5 ML NEB SOLUTION NEB SCH ×6 (02:41→23:15)
[2017-02-09 05:09] VITALS: BP 105/52
[2017-02-09] MEDS: LEVOTHYROXINE SODIUM 25 MCG TABLET PO SCH (06:31)
[2017-02-09] MEDS: INSULIN ASPART 100 UNITS/ML SQ PRN ×4 (06:36→21:48)
[2017-02-09 06:47] LABS: GLUCOSE COMMENT 1 Received Meds; GLUCOSE,POINT OF CARE 148 MG/DL (70-110)
[2017-02-09 07:48] VITALS: BP 120/58
[2017-02-09] MEDS ORDERED: VANCOMYCIN HCL 1 GM/D5% WATER 200 ML IV ONE (08:00)
[2017-02-09 08:35] LABS: BASOPHILS % (AUTO) 0.2 % (0.0-2.0); EOSINOPHILS % (AUTO) 5.4 % (1.0-6.0); HEMATOCRIT 29.5 % (41-53); HEMOGLOBIN 8.9 g/dL (13.5-17.5); LYMPHOCYTES # (AUTO) 1.6 K/uL (1.0-4.8); LYMPHOCYTES % (AUTO) 20.3 % (22.0-44.0); MEAN CORPUSCULAR HEMOGLOBIN 25.6 pg (26.0-34.0); MEAN CORPUSCULAR HGB CONC 30.3 G/dL (31.0-37.0); MEAN CORPUSCULAR VOLUME 85 fL (80-100); MONOCYTES # (AUTO) 0.6 K/uL (0.1-1.0); MONOCYTES % (AUTO) 7.1 % (2.0-9.0); NEUTROPHILS # (AUTO) 5.4 K/uL (1.8-7.7); PLATELET COUNT (AUTO) 166 K/uL (150-450); RED BLOOD CELL COUNT(AUTO) 3.48 MIL/uL (4.50-5.90); WHITE BLOOD COUNT (AUTO) 8.1 K/uL (4.5-11.0)
[2017-02-09] MEDS: INSULIN DETEMIR 100 UNITS/ML SQ SCH ×2 (08:38→21:54)
[2017-02-09 08:41] LABS: CALCIUM, TOTAL 8.6 mg/dL (8.8-10.5); CREATININE 6.44 mg/dL (0.60-1.30); MAGNESIUM 2.2 mg/dL (1.80-2.40); POTASSIUM 5.6 mmol/L (3.5-5.1)
[2017-02-09] MEDS: GABAPENTIN 100 MG CAPSULE PO SCH ×3 (09:00→20:24)
[2017-02-09 09:52] LABS: RBC MORPHOLOGY COMMENT ABNORMAL RBC MORPH
[2017-02-09] MEDS ORDERED: SODIUM CHLORIDE 0.9% 1,000 ML IV ONE ×2 (09:54→09:55)
[2017-02-09 11:30] VITALS: BP 134/58
[2017-02-09 13:52] LABS: GLUCOSE,POINT OF CARE 135 MG/DL (70-110)
[2017-02-09] MEDS: FOLIC ACID 1 MG TABLET PO SCH (14:43)
[2017-02-09] MEDS: VITAMIN B COMP/VIT C/FOLIC ACID CAPSULE PO SCH (14:43)
[2017-02-09] MEDS: PredniSONE 5 MG TABLET PO SCH (14:43)
[2017-02-09] MEDS: DOCUSATE SODIUM 250 MG CAPSULE PO SCH (14:43)
[2017-02-09] MEDS: APIXABAN 2.5 MG TABLET PO SCH ×2 (14:43→20:24)
[2017-02-09] MEDS: CHOLECALCIFEROL (VIT D3) 1,000 UNITS TABLET PO SCH (14:44)
[2017-02-09] MEDS: CETIRIZINE HCL 10 MG TABLET PO SCH (14:44)
[2017-02-09] MEDS: AMIODARONE HCL 200 MG TABLET PO SCH (14:44)
[2017-02-09] MEDS ORDERED: MANNITOL 25%-12.5 GM/50 ML VIAL IVP PRN (15:00)
[2017-02-09] MEDS ORDERED: ALBUMIN HUMAN 25%-12.5GM/50ML IV BOTTLE IV PRN (15:00)
[2017-02-09] MEDS ORDERED: HEPARIN SODIUM,PORCINE 1,000 UNITS/ML VIAL IVP ONE ×3 (15:00→18:23)
[2017-02-09 16:27] VITALS: BP 111/59
[2017-02-09 17:57] LABS: GLUCOSE COMMENT 1 Received Meds; GLUCOSE,POINT OF CARE 202 MG/DL (70-110)
[2017-02-09 19:30] VITALS: BP 134/62
[2017-02-09] MEDS: ROPINIRole HCL 1 MG TABLET PO SCH (20:24)
[2017-02-09] MEDS: ATORVASTATIN CALCIUM 20 MG TABLET PO SCH (20:25)
[2017-02-09] MEDS: FAMOTIDINE 20 MG TABLET PO SCH (20:25)
[2017-02-09] MEDS: SENNA 218 MG/5 ML SYRUP ORAL.SYG PO SCH (20:25)
[2017-02-09] MEDS ORDERED: *CLINICAL-BACTRIM/SEPTRA IVPB DOSING CLINICAL ONE (23:15)
[2017-02-09 23:53] VITALS: BP 141/68
[2017-02-10] MEDS: LEVOFLOXACIN 250 MG/D5% WATER 50 ML IV SCH (00:41)
[2017-02-10] MEDS: CefTAZidime PENTAHYDRATE 2 GM in DEXTROSE 5%-WATER 50 ML IV SCH (00:41)
[2017-02-10] MEDS ORDERED: SODIUM CHLORIDE 0.9% 250 ML IV ONE (00:43)
[2017-02-10] MEDS: ALBUTEROL SULFATE 2.5 MG/0.5 ML NEB SOLUTION NEB SCH ×6 (03:15→23:49)
[2017-02-10] MEDS: IPRATROPIUM BROMIDE 0.5 MG/2.5 ML NEB SOLUTION NEB SCH ×6 (03:15→23:49)
[2017-02-10 04:24] VITALS: BP 141/71
[2017-02-10] MEDS: INSULIN ASPART 100 UNITS/ML SQ PRN ×3 (06:05→21:11)
[2017-02-10] MEDS: LEVOTHYROXINE SODIUM 25 MCG TABLET PO SCH (06:27)
[2017-02-10 06:57] LABS: GLUCOSE COMMENT 1 Received Meds; GLUCOSE,POINT OF CARE 276 MG/DL (70-110)
[2017-02-10 07:23] LABS: CALCIUM, TOTAL 8.7 mg/dL (8.8-10.5); CREATININE 4.73 mg/dL (0.60-1.30); POTASSIUM 5.9 mmol/L (3.5-5.1)
[2017-02-10 07:31] VITALS: BP 127/68
[2017-02-10] MEDS: VITAMIN B COMP/VIT C/FOLIC ACID CAPSULE PO SCH (08:38)
[2017-02-10] MEDS: FOLIC ACID 1 MG TABLET PO SCH (08:38)
[2017-02-10] MEDS: APIXABAN 2.5 MG TABLET PO SCH ×2 (08:38→21:04)
[2017-02-10] MEDS: DOCUSATE SODIUM 250 MG CAPSULE PO SCH (08:38)
[2017-02-10] MEDS: GABAPENTIN 100 MG CAPSULE PO SCH ×3 (08:38→21:04)
[2017-02-10] MEDS: PredniSONE 5 MG TABLET PO SCH (08:38)
[2017-02-10] MEDS: AMIODARONE HCL 200 MG TABLET PO SCH (08:40)
[2017-02-10] MEDS: CETIRIZINE HCL 10 MG TABLET PO SCH (08:41)
[2017-02-10] MEDS: INSULIN DETEMIR 100 UNITS/ML SQ SCH ×2 (08:41→21:10)
[2017-02-10] MEDS: CHOLECALCIFEROL (VIT D3) 1,000 UNITS TABLET PO SCH (08:41)
[2017-02-10 10:07] LABS: GLUCOSE COMMENT 1 Received Meds; GLUCOSE,POINT OF CARE 269 MG/DL (70-110)
[2017-02-10 10:07] LABS: GLUCOSE COMMENT 1 Received Meds; GLUCOSE,POINT OF CARE 246 MG/DL (70-110)
[2017-02-10 12:05] VITALS: BP 111/38
[2017-02-10 12:32] LABS: GLUCOSE,POINT OF CARE 132 MG/DL (70-110)
[2017-02-10 15:23] VITALS: BP 101/36
[2017-02-10 18:55] VITALS: BP 150/58
[2017-02-10 19:28] VITALS: BP 114/70
[2017-02-10 19:47] LABS: GLUCOSE,POINT OF CARE 72 MG/DL (70-110)
[2017-02-10] MEDS: SENNA 218 MG/5 ML SYRUP ORAL.SYG PO SCH (20:57)
[2017-02-10] MEDS: ROPINIRole HCL 1 MG TABLET PO SCH (21:04)
[2017-02-10] MEDS: ATORVASTATIN CALCIUM 20 MG TABLET PO SCH (21:04)
[2017-02-10] MEDS: FAMOTIDINE 20 MG TABLET PO SCH (21:04)
[2017-02-10 21:52] LABS: GLUCOSE,POINT OF CARE 217 MG/DL (70-110)
[2017-02-11 00:07] VITALS: BP 103/63
[2017-02-11] MEDS: LEVOFLOXACIN 250 MG/D5% WATER 50 ML IV SCH ×2 (00:19→23:14)
[2017-02-11] MEDS ORDERED: SODIUM CHLORIDE 0.9% 100 ML ONE (00:21)
[2017-02-11] MEDS: CefTAZidime PENTAHYDRATE 2 GM in DEXTROSE 5%-WATER 50 ML IV SCH (01:09)
[2017-02-11] MEDS: ALBUTEROL SULFATE 2.5 MG/0.5 ML NEB SOLUTION NEB SCH ×6 (03:23→23:21)
[2017-02-11] MEDS: IPRATROPIUM BROMIDE 0.5 MG/2.5 ML NEB SOLUTION NEB SCH ×6 (03:23→23:22)
[2017-02-11 04:37] VITALS: BP 117/53
[2017-02-11 06:22] LABS: CALCIUM, TOTAL 8.4 mg/dL (8.8-10.5); CREATININE 4.05 mg/dL (0.60-1.30); POTASSIUM 4.6 mmol/L (3.5-5.1)
[2017-02-11 06:41] LABS: PROCALCITONIN (PCT) 2.71 ng/mL (<0.50)
[2017-02-11] MEDS: LEVOTHYROXINE SODIUM 25 MCG TABLET PO SCH (06:49)
[2017-02-11] MEDS: INSULIN ASPART 100 UNITS/ML SQ PRN ×4 (06:59→22:31)
[2017-02-11 07:24] VITALS: BP 145/64
[2017-02-11] MEDS ORDERED: VANCOMYCIN HCL 1.25 GM in DEXTROSE 5%-WATER 250 ML IV ONE (08:00)
[2017-02-11] MEDS: DOCUSATE SODIUM 250 MG CAPSULE PO SCH (09:00)
[2017-02-11] MEDS: PredniSONE 5 MG TABLET PO SCH (09:10)
[2017-02-11] MEDS: AMIODARONE HCL 200 MG TABLET PO SCH (09:11)
[2017-02-11] MEDS: GABAPENTIN 100 MG CAPSULE PO SCH ×3 (09:11→22:20)
[2017-02-11] MEDS: CHOLECALCIFEROL (VIT D3) 1,000 UNITS TABLET PO SCH (09:11)
[2017-02-11] MEDS: FOLIC ACID 1 MG TABLET PO SCH (09:12)
[2017-02-11] MEDS: VITAMIN B COMP/VIT C/FOLIC ACID CAPSULE PO SCH (09:12)
[2017-02-11] MEDS: APIXABAN 2.5 MG TABLET PO SCH ×2 (09:12→22:20)
[2017-02-11] MEDS: CETIRIZINE HCL 10 MG TABLET PO SCH (09:13)
[2017-02-11] MEDS: INSULIN DETEMIR 100 UNITS/ML SQ SCH ×2 (09:20→22:26)
[2017-02-11 09:32] LABS: GLUCOSE COMMENT 1 Received Meds; GLUCOSE,POINT OF CARE 167 MG/DL (70-110)
[2017-02-11 11:49] VITALS: BP 107/57
[2017-02-11 16:18] VITALS: BP 131/74
[2017-02-11 19:41] LABS: GLUCOSE,POINT OF CARE 120 MG/DL (70-110)
[2017-02-11 19:47] LABS: GLUCOSE,POINT OF CARE 139 MG/DL (70-110)
[2017-02-11 19:51] LABS: GLUCOSE COMMENT 1 Received Meds; GLUCOSE,POINT OF CARE 171 MG/DL (70-110)
[2017-02-11 19:57] VITALS: BP 143/96
[2017-02-11 20:17] LABS: GLUCOSE COMMENT 1 Received Meds; GLUCOSE,POINT OF CARE 263 MG/DL (70-110)
[2017-02-11] MEDS: ROPINIRole HCL 1 MG TABLET PO SCH (22:20)
[2017-02-11] MEDS: ATORVASTATIN CALCIUM 20 MG TABLET PO SCH (22:20)
[2017-02-11] MEDS: FAMOTIDINE 20 MG TABLET PO SCH (22:20)
[2017-02-11] MEDS: SENNA 218 MG/5 ML SYRUP ORAL.SYG PO SCH (22:21)
[2017-02-11] MEDS: SULFAMETHOX/TRIMETH 25 ML in DEXTROSE 5%-WATER 250 ML IV SCH (23:58)
[2017-02-12 00:21] VITALS: BP 107/62
[2017-02-12] MEDS: CefTAZidime PENTAHYDRATE 2 GM in DEXTROSE 5%-WATER 50 ML IV SCH (02:43)
[2017-02-12] MEDS: ALBUTEROL SULFATE 2.5 MG/0.5 ML NEB SOLUTION NEB SCH ×6 (03:48→23:10)
[2017-02-12] MEDS: IPRATROPIUM BROMIDE 0.5 MG/2.5 ML NEB SOLUTION NEB SCH ×6 (03:48→23:10)
[2017-02-12 04:25] VITALS: BP 111/68
[2017-02-12] MEDS ORDERED: 0.9% SODIUM CHLORIDE 10 ML SYRINGE IVP PRN (05:15)
[2017-02-12] MEDS: LEVOTHYROXINE SODIUM 25 MCG TABLET PO SCH (06:07)
[2017-02-12] MEDS: INSULIN ASPART 100 UNITS/ML SQ PRN ×3 (06:08→21:17)
[2017-02-12 06:25] LABS: CALCIUM, TOTAL 8.5 mg/dL (8.8-10.5); CREATININE 5.53 mg/dL (0.60-1.30); POTASSIUM 5.4 mmol/L (3.5-5.1)
[2017-02-12 06:44] LABS: BASOPHILS % (AUTO) 0.2 % (0.0-2.0); EOSINOPHILS % (AUTO) 6.6 % (1.0-6.0); HEMATOCRIT 29.9 % (41-53); HEMOGLOBIN 9.2 g/dL (13.5-17.5); LYMPHOCYTES # (AUTO) 1.3 K/uL (1.0-4.8); LYMPHOCYTES % (AUTO) 18.8 % (22.0-44.0); MEAN CORPUSCULAR HEMOGLOBIN 26.3 pg (26.0-34.0); MEAN CORPUSCULAR HGB CONC 30.8 G/dL (31.0-37.0); MEAN CORPUSCULAR VOLUME 85 fL (80-100); MONOCYTES # (AUTO) 0.3 K/uL (0.1-1.0); NEUTROPHILS # (AUTO) 4.8 K/uL (1.8-7.7); NEUTROPHILS % (AUTO) 69.4 % (40.0-70.0); PLATELET COUNT (AUTO) 145 K/uL (150-450); RED BLOOD CELL COUNT(AUTO) 3.51 MIL/uL (4.50-5.90); RED CELL DISTRIBUTION WIDTH 20.1 % (11.5-14.5); WHITE BLOOD COUNT (AUTO) 6.9 K/uL (4.5-11.0)
[2017-02-12 08:06] VITALS: BP 105/54
[2017-02-12] MEDS: INSULIN DETEMIR 100 UNITS/ML SQ SCH ×2 (09:00→14:55)
[2017-02-12 09:06] LABS: RBC MORPHOLOGY COMMENT ABNORMAL RBC MORPH
[2017-02-12 12:08] VITALS: BP 106/41
[2017-02-12] MEDS: PredniSONE 5 MG TABLET PO SCH (14:44)
[2017-02-12] MEDS: FOLIC ACID 1 MG TABLET PO SCH (14:44)
[2017-02-12] MEDS: AMIODARONE HCL 200 MG TABLET PO SCH (14:44)
[2017-02-12] MEDS: DOCUSATE SODIUM 250 MG CAPSULE PO SCH ×2 (14:44→14:55)
[2017-02-12] MEDS: APIXABAN 2.5 MG TABLET PO SCH ×2 (14:44→21:08)
[2017-02-12] MEDS: CETIRIZINE HCL 10 MG TABLET PO SCH (14:44)
[2017-02-12] MEDS: CHOLECALCIFEROL (VIT D3) 1,000 UNITS TABLET PO SCH (14:44)
[2017-02-12] MEDS: VITAMIN B COMP/VIT C/FOLIC ACID CAPSULE PO SCH (14:45)
[2017-02-12 16:07] VITALS: BP 130/78
[2017-02-12] MEDS ORDERED: HEPARIN SODIUM,PORCINE 1,000 UNITS/ML VIAL IVP ONE (17:01)
[2017-02-12 17:52] LABS: GLUCOSE,POINT OF CARE 296 MG/DL (70-110)
[2017-02-12 20:00] VITALS: BP 120/48
[2017-02-12] MEDS: ROPINIRole HCL 1 MG TABLET PO SCH (21:08)
[2017-02-12] MEDS: GABAPENTIN 100 MG CAPSULE PO SCH (21:08)
[2017-02-12] MEDS: ATORVASTATIN CALCIUM 20 MG TABLET PO SCH (21:08)
[2017-02-12] MEDS: FAMOTIDINE 20 MG TABLET PO SCH (21:08)
[2017-02-12] MEDS: SENNA 218 MG/5 ML SYRUP ORAL.SYG PO SCH (21:09)
[2017-02-12] MEDS ORDERED: INSULIN DETEMIR 100 UNITS/ML SQ ONE (21:45)
[2017-02-13] VITALS: BP 109/48
[2017-02-13 00:12] VITALS: BP 109/49
[2017-02-13] MEDS: LEVOFLOXACIN 250 MG/D5% WATER 50 ML IV SCH (00:55)
[2017-02-13] MEDS: SULFAMETHOX/TRIMETH 25 ML in DEXTROSE 5%-WATER 250 ML IV SCH (00:56)
[2017-02-13] MEDS: IPRATROPIUM BROMIDE 0.5 MG/2.5 ML NEB SOLUTION NEB SCH ×4 (02:57→15:27)
[2017-02-13] MEDS: ALBUTEROL SULFATE 2.5 MG/0.5 ML NEB SOLUTION NEB SCH ×4 (02:57→15:27)
[2017-02-13 05:05] VITALS: BP 119/52
[2017-02-13] MEDS: LEVOTHYROXINE SODIUM 25 MCG TABLET PO SCH (06:12)
[2017-02-13] MEDS: INSULIN ASPART 100 UNITS/ML SQ PRN (06:21)
[2017-02-13 07:26] VITALS: BP 149/80
[2017-02-13] MEDS ORDERED: SODIUM CHLORIDE 0.9% 1,000 ML IV ONE (08:11)
[2017-02-13] MEDS: INSULIN DETEMIR 100 UNITS/ML SQ SCH (09:00)
[2017-02-13] MEDS ORDERED: HEPARIN SODIUM,PORCINE 1,000 UNITS/ML VIAL IVP ONE ×3 (10:30→17:12)
[2017-02-13] MEDS ORDERED: MANNITOL 25%-12.5 GM/50 ML VIAL IVP PRN (10:30)
[2017-02-13] MEDS ORDERED: ALBUMIN HUMAN 25%-12.5GM/50ML IV BOTTLE IV PRN (10:30)
[2017-02-13 11:32] VITALS: BP 122/43
[2017-02-13] MEDS: GABAPENTIN 100 MG CAPSULE PO SCH (12:41)
[2017-02-13] MEDS: VITAMIN B COMP/VIT C/FOLIC ACID CAPSULE PO SCH (12:42)
[2017-02-13] MEDS: FOLIC ACID 1 MG TABLET PO SCH (12:42)
[2017-02-13] MEDS: APIXABAN 2.5 MG TABLET PO SCH (12:42)
[2017-02-13] MEDS: CHOLECALCIFEROL (VIT D3) 1,000 UNITS TABLET PO SCH (12:42)
[2017-02-13] MEDS: AMIODARONE HCL 200 MG TABLET PO SCH (12:43)
[2017-02-13] MEDS: PredniSONE 5 MG TABLET PO SCH (12:43)
[2017-02-13] MEDS: CETIRIZINE HCL 10 MG TABLET PO SCH (12:43)
[2017-02-13 14:52] LABS: GLUCOSE COMMENT 1 Received Meds; GLUCOSE,POINT OF CARE 227 MG/DL (70-110)
[2017-02-13 15:37] VITALS: BP 118/66
[2017-02-13] MEDS ORDERED: AUD NEB (16:09)
[2017-02-13] MEDS ORDERED: AMIO200T44 PO (16:10)
[2017-02-13] MEDS ORDERED: APIX2.5T PO (16:10)
[2017-02-13] MEDS ORDERED: CETI-260 PO (16:11)
[2017-02-13] MEDS ORDERED: ATOR20TA86 PO (16:11)
[2017-02-13] MEDS ORDERED: VITAD1000 PO (16:12)
[2017-02-13] MEDS ORDERED: DOCU250C91 PO (16:12)
[2017-02-13] MEDS ORDERED: EPOE10I SQ (16:14)
[2017-02-13] MEDS ORDERED: FOLI1 PO (16:15)
[2017-02-13] MEDS ORDERED: FAMO20 PO (16:15)
[2017-02-13] MEDS ORDERED: GABA-529 PO (16:16)
[2017-02-13] MEDS ORDERED: INSU100V12 SQ ×3 (16:17→16:39)
[2017-02-13] MEDS ORDERED: IPRNEB NEB (16:20)
[2017-02-13] MEDS ORDERED: LEVO250P6 IV (16:21)
[2017-02-13] MEDS ORDERED: LEVO25TA9 PO (16:22)
[2017-02-13] MEDS ORDERED: PRED5 PO (16:23)
[2017-02-13] MEDS ORDERED: ROPI1TAB11 PO (16:25)
[2017-02-13] MEDS ORDERED: SENN8.6T90 PO (16:27)
[2017-02-13] MEDS ORDERED: BACT5I IV (16:31)
[2017-02-13 16:32] LABS: GLUCOSE,POINT OF CARE 219 MG/DL (70-110)
[2017-02-13] MEDS ORDERED: FOLI1CAP2 PO (16:32)
[2017-02-13] MEDS ORDERED: ACET-66 PO (16:33)
[2017-02-13] MEDS ORDERED: BISA10S PR (16:33)
[2017-02-13] MEDS ORDERED: INSNOV SQ (16:34)
[2017-02-13] MEDS ORDERED: MELA3 PO (16:35)
[2017-02-13] MEDS ORDERED: ZOLP5 PO (16:36)
[2017-02-13] MEDS ORDERED: MANNITOL 25%-12.5 GM/50 ML VIAL IVP ONE (17:12)
[2017-02-14] MEDS ORDERED: EPOETIN ALFA 10,000 UNITS/ML VIAL SQ SCH (09:00)
[2017-02-14 11:17] LABS: GLUCOSE COMMENT 1 Received Meds; GLUCOSE,POINT OF CARE 309 MG/DL (70-110)
[2017-02-14 13:47] LABS: GLUCOSE COMMENT 1 Received Meds; GLUCOSE,POINT OF CARE 234 MG/DL (70-110)
[2017-02-14 13:56] LABS: GLUCOSE,POINT OF CARE 101 MG/DL (70-110)
[2017-02-14 17:17] LABS: GLUCOSE COMMENT 1 Received Meds; GLUCOSE,POINT OF CARE 169 MG/DL (70-110)
[2017-02-15 15:27] LABS: GLUCOSE,POINT OF CARE 135 MG/DL (70-110)
[2017-02-15 15:27] LABS: GLUCOSE COMMENT 1 Received Meds; GLUCOSE,POINT OF CARE 356 MG/DL (70-110)
== END 2017-02-13 17:30 | DRG 193 ==
LOC: 5N 20:55
PROVIDERS: ADMIT Internal Medicine Geriatric Medicine; ATTEND Internal Medicine Geriatric Medicine
PROC: 5A09457 Assistance with Respiratory Ventilation, 24-96 Consecutive Hours, Continuous Positive Airway Pressure (ICD-10-PCS; 2017-02-08)
PROC: 5A1D60Z (ICD-10-PCS; principal; 2017-02-09)
DX: J18.1 Lobar pneumonia, unspecified organism (principal); N18.6 End stage renal disease; G93.40 Encephalopathy, unspecified; T86.12 Kidney transplant failure; I12.0 Hypertensive chronic kidney disease with stage 5 chronic kidney disease or end stage renal disease; I82.C11 Acute embolism and thrombosis of right internal jugular vein; I82.611 Acute embolism and thrombosis of superficial veins of right upper extremity; E87.4 Mixed disorder of acid-base balance; E87.1 Hypo-osmolality and hyponatremia; E87.5 Hyperkalemia; R09.02 Hypoxemia; E10.22 Type 1 diabetes mellitus with diabetic chronic kidney disease; I48.0 Paroxysmal atrial fibrillation; E03.9 Hypothyroidism, unspecified; G47.33 Obstructive sleep apnea (adult) (pediatric); E78.5 Hyperlipidemia, unspecified; G40.909 Epilepsy, unspecified, not intractable, without status epilepticus; G25.81 Restless legs syndrome; Y83.0 Surgical operation with transplant of whole organ as the cause of abnormal reaction of the patient, or of later complication, without mention of misadventure at the time of the procedure; J45.909 Unspecified asthma, uncomplicated; E55.9 Vitamin D deficiency, unspecified; E10.21 Type 1 diabetes mellitus with diabetic nephropathy; F41.9 Anxiety disorder, unspecified; F32.9 Major depressive disorder, single episode, unspecified; X58.XXXA Exposure to other specified factors, initial encounter; Y93.89 Activity, other specified; Y92.89 Other specified places as the place of occurrence of the external cause; Y99.8 Other external cause status; Z99.2 Dependence on renal dialysis; Z87.891 Personal history of nicotine dependence
CPT/HCPCS: 70450; 71020; 71250; 82306; 82607; 82746; 82805; 82962; 83036; 83735; 84100; 84145; 84439; 84443; 87040; 87081; 87340; 92507; 92610; 93005; 94640; 94660; 97163; 97166; 97530; J0713; J0885; J1644; J1956; J2150; J2543; J3370; J3490; J7030; J7050; J7060; Q0162

== ENCOUNTER 2017-02-13 17:21 | Inpatient (IN) | payer MEDICARE, MEDICAID ==
[~2017-02-13] VITALS: Ht 160 cm; Wt 75.7 kg
[~2017-02-13 17:21] MED LIST changes: +ACET-66 PO; +AMIO200T44 PO; +APIX2.5T PO; +ATOR20TA86 PO; +AUD NEB; +BACT5I IV; +BISA10S PR; +CETI-260 PO; +DOCU250C91 PO; +EPOE10I SQ; +FAMO20 PO; +FOLI1 PO; +FOLI1CAP2 PO; +GABA-529 PO; +IPRNEB NEB; +LEVO250P6 IV; +LEVO25TA9 PO; +MELA3 PO; +ROPI1TAB11 PO; +SENN8.6T90 PO; +VITAD1000 PO; +ZOLP5 PO
[2017-02-13 17:45] VITALS: BP 149/62
[2017-02-13 17:50] VITALS: BP 149/62
[2017-02-13] MEDS ORDERED: MELATONIN 3 MG TABLET PO PRN (19:15)
[2017-02-13] MEDS ORDERED: ACETAMINOPHEN 325 MG TABLET PO PRN (19:15)
[2017-02-13] MEDS ORDERED: MANNITOL 25%-12.5 GM/50 ML VIAL IVP PRN (19:15)
[2017-02-13] MEDS ORDERED: DOCUSATE SODIUM 283 MG/5 ML MINI-ENEMA PR PRN (19:15)
[2017-02-13] MEDS ORDERED: ZOLPIDEM TARTRATE 5 MG TABLET PO PRN (19:15)
[2017-02-13] MEDS ORDERED: ALBUMIN HUMAN 25%-12.5GM/50ML 50 ML IV PRN (19:15)
[2017-02-13] MEDS ORDERED: DEXTROSE 50%-WATER 25 GM/50 ML SYRINGE IVP PRN (20:00)
[2017-02-13] MEDS: FAMOTIDINE 20 MG TABLET PO SCH (20:42)
[2017-02-13] MEDS: APIXABAN 2.5 MG TABLET PO SCH (20:42)
[2017-02-13] MEDS: GABAPENTIN 100 MG CAPSULE PO SCH (20:42)
[2017-02-13] MEDS: SENNA 187 MG TABLET PO SCH ×2 (20:42→21:00)
[2017-02-13] MEDS: ATORVASTATIN CALCIUM 20 MG TABLET PO SCH (20:42)
[2017-02-13] MEDS: ROPINIRole HCL 1 MG TABLET PO SCH (20:42)
[2017-02-13 21:27] LABS: GLUCOSE COMMENT 1 Received Meds; GLUCOSE,POINT OF CARE 329 MG/DL (70-110)
[2017-02-13] MEDS: INSULIN ASPART 100 UNITS/ML SQ PRN (21:35)
[2017-02-13] MEDS: INSULIN DETEMIR 100 UNITS/ML SQ SCH (21:36)
[2017-02-13] MEDS: IPRATROPIUM BROMIDE 0.5 MG/2.5 ML NEB SOLUTION NEB SCH (23:00)
[2017-02-13] MEDS: ALBUTEROL SULFATE 2.5 MG/0.5 ML NEB SOLUTION NEB SCH (23:00)
[2017-02-13] MEDS ORDERED: DEXTROSE IV SCH (23:15)
[2017-02-13] MEDS ORDERED: SULFAMETHOX IV SCH (23:15)
[2017-02-13] MEDS ORDERED: WATER IV SCH (23:15)
[2017-02-13] MEDS ORDERED: TRIMETH IV SCH (23:15)
[2017-02-13] MEDS: SULFAMETHOX/TRIMETH 25 ML in DEXTROSE 5%-WATER 250 ML IV SCH (23:20)
[2017-02-14] VITALS: BP_SYST 134; BP_SYST 95; BP_DIAS 52; BP_DIAS 65
[2017-02-14] MEDS ORDERED: SODIUM CHLORIDE 0.9% 250 ML IV ONE (00:05)
[2017-02-14] MEDS: 0.9% SODIUM CHLORIDE 10 ML SYRINGE IVP SCH ×4 (00:40→23:17)
[2017-02-14] MEDS: LEVOFLOXACIN 250 MG/D5% WATER 50 ML IV SCH ×2 (00:40→23:17)
[2017-02-14] MEDS: ALBUTEROL SULFATE 2.5 MG/0.5 ML NEB SOLUTION NEB SCH ×6 (03:29→22:39)
[2017-02-14] MEDS: IPRATROPIUM BROMIDE 0.5 MG/2.5 ML NEB SOLUTION NEB SCH ×6 (03:29→22:39)
[2017-02-14] MEDS: LEVOTHYROXINE SODIUM 25 MCG TABLET PO SCH (05:51)
[2017-02-14 06:02] LABS: GLUCOSE,POINT OF CARE 279 MG/DL (70-110)
[2017-02-14 07:24] LABS: BASOPHILS # (AUTO) 0.04 K/uL (0.00-0.20); BASOPHILS % (AUTO) 0.6 % (0.0-2.0); EOSINOPHILS # (AUTO) 0.43 K/uL (0.00-0.70); EOSINOPHILS % (AUTO) 6.01 % (1.0-6.0); HEMATOCRIT 27.8 % (41-53); LYMPHOCYTES # (AUTO) 0.8 K/uL (1.0-4.8); LYMPHOCYTES % (AUTO) 11.1 % (22.0-44.0); MEAN CORPUSCULAR HEMOGLOBIN 27.1 pg (26.0-34.0); MEAN CORPUSCULAR HGB CONC 32.3 G/dL (31.0-37.0); MEAN CORPUSCULAR VOLUME 84 fL (80-100); MONOCYTES # (AUTO) 0.6 K/uL (0.1-1.0); MONOCYTES % (AUTO) 8.1 % (2.0-9.0); NEUTROPHILS # (AUTO) 5.3 K/uL (1.8-7.7); NEUTROPHILS % (AUTO) 74.3 % (40.0-70.0); PLATELET COUNT (AUTO) 153 K/uL (150-450); RED BLOOD CELL COUNT(AUTO) 3.31 MIL/uL (4.50-5.90); RED CELL DISTRIBUTION WIDTH 20.1 % (11.5-14.5); WHITE BLOOD COUNT (AUTO) 7.2 K/uL (4.5-11.0)
[2017-02-14 07:30] LABS: ALBUMIN 2.8 g/dL (3.4-5.0); BILIRUBIN,TOTAL 0.3 mg/dL (0.1-1.0); CALCIUM, TOTAL 8.4 mg/dL (8.8-10.5); CREATININE 4.31 mg/dL (0.60-1.30); POTASSIUM 5.9 mmol/L (3.5-5.1); TOTAL PROTEIN, SERUM 6.7 g/dL (6.4-8.2)
[2017-02-14] MEDS: PredniSONE 5 MG TABLET PO SCH (08:23)
[2017-02-14] MEDS: APIXABAN 2.5 MG TABLET PO SCH ×2 (08:23→20:37)
[2017-02-14] MEDS: FOLIC ACID 1 MG TABLET PO SCH (08:23)
[2017-02-14] MEDS: GABAPENTIN 100 MG CAPSULE PO SCH ×2 (08:24→20:38)
[2017-02-14] MEDS: VITAMIN B COMP/VIT C/FOLIC ACID CAPSULE PO SCH (08:24)
[2017-02-14] MEDS: CHOLECALCIFEROL (VIT D3) 1,000 UNITS TABLET PO SCH (08:25)
[2017-02-14] MEDS: CETIRIZINE HCL 10 MG TABLET PO SCH (08:25)
[2017-02-14] MEDS: AMIODARONE HCL 200 MG TABLET PO SCH (08:25)
[2017-02-14] MEDS: INSULIN DETEMIR 100 UNITS/ML SQ SCH ×2 (08:26→21:02)
[2017-02-14] MEDS: INSULIN ASPART 100 UNITS/ML SQ PRN ×3 (08:28→21:01)
[2017-02-14] MEDS: OXYGEN THERAPY IH SCH ×2 (08:40→20:30)
[2017-02-14 08:43] VITALS: BP 150/52
[2017-02-14] MEDS: DOCUSATE SODIUM 250 MG CAPSULE PO SCH (09:00)
[2017-02-14] MEDS: EPOETIN ALFA 10,000 UNITS/ML VIAL SQ SCH (10:39)
[2017-02-14 12:57] LABS: GLUCOSE,POINT OF CARE 239 MG/DL (70-110)
[2017-02-14 14:50] VITALS: BP 105/66
[2017-02-14 17:42] LABS: GLUCOSE,POINT OF CARE 112 MG/DL (70-110)
[2017-02-14] MEDS ORDERED: SODIUM POLYSTYRENE SULFONATE 15 GM/60 ML SUSPENSION BOTTLE PO ONE (18:00)
[2017-02-14] MEDS: ATORVASTATIN CALCIUM 20 MG TABLET PO SCH (20:37)
[2017-02-14] MEDS: ROPINIRole HCL 1 MG TABLET PO SCH (20:37)
[2017-02-14] MEDS: SULFAMETHOX/TRIMETH 25 ML in DEXTROSE 5%-WATER 250 ML IV SCH (20:37)
[2017-02-14] MEDS: SENNA 187 MG TABLET PO SCH (20:38)
[2017-02-14] MEDS: FAMOTIDINE 20 MG TABLET PO SCH (20:38)
[2017-02-14 21:52] LABS: GLUCOSE,POINT OF CARE 158 MG/DL (70-110)
[2017-02-15] VITALS: BP 141/87
[2017-02-15] MEDS: ALBUTEROL SULFATE 2.5 MG/0.5 ML NEB SOLUTION NEB SCH ×6 (03:00→23:26)
[2017-02-15] MEDS: IPRATROPIUM BROMIDE 0.5 MG/2.5 ML NEB SOLUTION NEB SCH ×6 (03:00→23:26)
[2017-02-15 06:07] LABS: GLUCOSE,POINT OF CARE 199 MG/DL (70-110)
[2017-02-15] MEDS: LEVOTHYROXINE SODIUM 25 MCG TABLET PO SCH (06:25)
[2017-02-15 07:15] LABS: BASOPHILS # (AUTO) 0.07 K/uL (0.00-0.20); BASOPHILS % (AUTO) 1.3 % (0.0-2.0); EOSINOPHILS # (AUTO) 0.24 K/uL (0.00-0.70); EOSINOPHILS % (AUTO) 4.37 % (1.0-6.0); HEMATOCRIT 25.9 % (41-53); LYMPHOCYTES # (AUTO) 1.1 K/uL (1.0-4.8); LYMPHOCYTES % (AUTO) 20.2 % (22.0-44.0); MEAN CORPUSCULAR HEMOGLOBIN 25.3 pg (26.0-34.0); MEAN CORPUSCULAR HGB CONC 30.8 G/dL (31.0-37.0); MEAN CORPUSCULAR VOLUME 82 fL (80-100); MONOCYTES # (AUTO) 0.3 K/uL (0.1-1.0); MONOCYTES % (AUTO) 6.2 % (2.0-9.0); NEUTROPHILS # (AUTO) 3.7 K/uL (1.8-7.7); NEUTROPHILS % (AUTO) 67.9 % (40.0-70.0); PLATELET COUNT (AUTO) 142 K/uL (150-450); RED BLOOD CELL COUNT(AUTO) 3.15 MIL/uL (4.50-5.90); RED CELL DISTRIBUTION WIDTH 19.7 % (11.5-14.5); WHITE BLOOD COUNT (AUTO) 5.4 K/uL (4.5-11.0)
[2017-02-15 07:18] LABS: PHOSPHORUS 5.5 mg/dL (2.5-4.9)
[2017-02-15 07:31] VITALS: BP 140/94
[2017-02-15 07:31] LABS: CALCIUM, TOTAL 8.3 mg/dL (8.8-10.5); CREATININE 5.51 mg/dL (0.60-1.30); POTASSIUM 4.9 mmol/L (3.5-5.1)
[2017-02-15] MEDS: OXYGEN THERAPY IH SCH ×2 (07:50→20:26)
[2017-02-15] MEDS: AMIODARONE HCL 200 MG TABLET PO SCH (08:03)
[2017-02-15] MEDS: VITAMIN B COMP/VIT C/FOLIC ACID CAPSULE PO SCH (08:04)
[2017-02-15] MEDS: CHOLECALCIFEROL (VIT D3) 1,000 UNITS TABLET PO SCH (08:04)
[2017-02-15] MEDS: PredniSONE 5 MG TABLET PO SCH (08:05)
[2017-02-15] MEDS: APIXABAN 2.5 MG TABLET PO SCH ×2 (08:05→21:09)
[2017-02-15] MEDS: 0.9% SODIUM CHLORIDE 10 ML SYRINGE IVP SCH ×2 (08:05→20:25)
[2017-02-15] MEDS: GABAPENTIN 100 MG CAPSULE PO SCH ×2 (08:05→21:09)
[2017-02-15] MEDS: FOLIC ACID 1 MG TABLET PO SCH (08:05)
[2017-02-15] MEDS: CETIRIZINE HCL 10 MG TABLET PO SCH (08:05)
[2017-02-15] MEDS: INSULIN DETEMIR 100 UNITS/ML SQ SCH ×2 (08:06→21:00)
[2017-02-15] MEDS: INSULIN ASPART 100 UNITS/ML SQ PRN ×2 (08:08→11:59)
[2017-02-15] MEDS: DOCUSATE SODIUM 250 MG CAPSULE PO SCH (08:13)
[2017-02-15] MEDS ORDERED: EPOETIN ALFA 10,000 UNITS/ML VIAL SQ SCH (09:00)
[2017-02-15 09:47] LABS: RBC MORPHOLOGY COMMENT ABNORMAL RBC MORPH
[2017-02-15 11:42] LABS: GLUCOSE COMMENT 1 Received Meds; GLUCOSE,POINT OF CARE 357 MG/DL (70-110)
[2017-02-15] MEDS ORDERED: HEPARIN SODIUM,PORCINE 1,000 UNITS/ML VIAL IVP ONE ×3 (12:00→17:15)
[2017-02-15] MEDS ORDERED: MANNITOL 25%-12.5 GM/50 ML VIAL IVP ONE (12:00)
[2017-02-15] MEDS ORDERED: ALBUMIN HUMAN 25%-12.5GM/50ML IV BOTTLE IV ONE (12:00)
[2017-02-15] MEDS ORDERED: SODIUM CHLORIDE 0.9% 2,000 ML IV ONE (13:35)
[2017-02-15] MEDS ORDERED: ALBUMIN HUMAN 25%-12.5GM/50ML IV BOTTLE IV PRN (17:15)
[2017-02-15] MEDS ORDERED: MANNITOL 25%-12.5 GM/50 ML VIAL IVP PRN (17:15)
[2017-02-15 18:30] VITALS: BP 133/67
[2017-02-15 19:16] LABS: GLUCOSE,POINT OF CARE 72 MG/DL (70-110)
[2017-02-15 19:21] LABS: GLUCOSE,POINT OF CARE 70 MG/DL (70-110)
[2017-02-15 20:45] VITALS: BP 133/58
[2017-02-15] MEDS: ATORVASTATIN CALCIUM 20 MG TABLET PO SCH (21:09)
[2017-02-15] MEDS: ROPINIRole HCL 1 MG TABLET PO SCH (21:09)
[2017-02-15] MEDS: FAMOTIDINE 20 MG TABLET PO SCH (21:09)
[2017-02-15] MEDS: SENNA 187 MG TABLET PO SCH (21:09)
[2017-02-15] MEDS: SULFAMETHOX/TRIMETH 25 ML in DEXTROSE 5%-WATER 250 ML IV SCH (21:21)
[2017-02-15 21:47] LABS: GLUCOSE,POINT OF CARE 99 MG/DL (70-110)
[2017-02-15 22:16] LABS: GLUCOSE,POINT OF CARE 107 MG/DL (70-110)
[2017-02-15] MEDS ORDERED: INSULIN DETEMIR 100 UNITS/ML SQ ONE (23:30)
[2017-02-16] VITALS: BP 158/81
[2017-02-16] MEDS: LEVOFLOXACIN 250 MG/D5% WATER 50 ML IV SCH (00:10)
[2017-02-16] MEDS: 0.9% SODIUM CHLORIDE 10 ML SYRINGE IVP SCH ×3 (00:19→19:00)
[2017-02-16] MEDS: ALBUTEROL SULFATE 2.5 MG/0.5 ML NEB SOLUTION NEB SCH ×6 (03:00→23:04)
[2017-02-16] MEDS: IPRATROPIUM BROMIDE 0.5 MG/2.5 ML NEB SOLUTION NEB SCH ×6 (03:00→23:04)
[2017-02-16 06:17] LABS: GLUCOSE,POINT OF CARE 158 MG/DL (70-110)
[2017-02-16] MEDS: LEVOTHYROXINE SODIUM 25 MCG TABLET PO SCH (06:19)
[2017-02-16 06:27] VITALS: BP 153/86
[2017-02-16 07:11] LABS: CALCIUM, TOTAL 8.6 mg/dL (8.8-10.5); CREATININE 4.47 mg/dL (0.60-1.30); POTASSIUM 5.4 mmol/L (3.5-5.1)
[2017-02-16 07:42] VITALS: BP 132/59
[2017-02-16] MEDS: VITAMINS A & D 60 GM OINTMENT TP SCH (07:42)
[2017-02-16] MEDS: FOLIC ACID 1 MG TABLET PO SCH (07:43)
[2017-02-16] MEDS: CETIRIZINE HCL 10 MG TABLET PO SCH (07:43)
[2017-02-16] MEDS: AMIODARONE HCL 200 MG TABLET PO SCH (07:43)
[2017-02-16] MEDS: OXYGEN THERAPY IH SCH ×2 (07:43→08:21)
[2017-02-16] MEDS: GABAPENTIN 100 MG CAPSULE PO SCH ×2 (07:43→20:47)
[2017-02-16] MEDS: PredniSONE 5 MG TABLET PO SCH (07:43)
[2017-02-16] MEDS: CHOLECALCIFEROL (VIT D3) 1,000 UNITS TABLET PO SCH (07:43)
[2017-02-16] MEDS: DOCUSATE SODIUM 250 MG CAPSULE PO SCH ×2 (07:43→08:32)
[2017-02-16] MEDS: APIXABAN 2.5 MG TABLET PO SCH ×2 (07:43→20:47)
[2017-02-16] MEDS: VITAMIN B COMP/VIT C/FOLIC ACID CAPSULE PO SCH (07:43)
[2017-02-16] MEDS: INSULIN DETEMIR 100 UNITS/ML SQ SCH ×2 (07:45→21:41)
[2017-02-16] MEDS: EPOETIN ALFA 10,000 UNITS/ML VIAL SQ SCH (07:45)
[2017-02-16] MEDS: ACETAMINOPHEN 325 MG TABLET PO PRN ×2 (09:02→13:21)
[2017-02-16] MEDS ORDERED: HEPARIN SODIUM,PORCINE 1,000 UNITS/ML VIAL IVP ONE ×3 (12:00→15:15)
[2017-02-16 12:02] LABS: GLUCOSE,POINT OF CARE 115 MG/DL (70-110)
[2017-02-16 12:02] LABS: GLUCOSE COMMENT 1 Juice/Food/D50 Given; GLUCOSE,POINT OF CARE 48 MG/DL (70-110)
[2017-02-16 12:03] LABS: GLUCOSE,POINT OF CARE 261 MG/DL (70-110)
[2017-02-16] MEDS: INSULIN ASPART 100 UNITS/ML SQ PRN ×3 (12:24→21:40)
[2017-02-16] MEDS ORDERED: SODIUM CL IRRIG SOLN BOTTLE 250 ML IRRIG ONE (13:32)
[2017-02-16] MEDS ORDERED: SODIUM CHLORIDE 0.9% 2,000 ML IV ONE (13:58)
[2017-02-16] MEDS ORDERED: ALBUMIN HUMAN 25%-12.5GM/50ML IV BOTTLE IV PRN (15:15)
[2017-02-16] MEDS ORDERED: MANNITOL 25%-12.5 GM/50 ML VIAL IVP PRN (15:15)
[2017-02-16 18:14] VITALS: BP 133/57
[2017-02-16 18:22] LABS: GLUCOSE,POINT OF CARE 202 MG/DL (70-110)
[2017-02-16] MEDS: SULFAMETHOX/TRIMETH 25 ML in DEXTROSE 5%-WATER 250 ML IV SCH (20:46)
[2017-02-16] MEDS: ATORVASTATIN CALCIUM 20 MG TABLET PO SCH (20:47)
[2017-02-16] MEDS: FAMOTIDINE 20 MG TABLET PO SCH (20:47)
[2017-02-16] MEDS: SENNA 187 MG TABLET PO SCH (20:47)
[2017-02-16] MEDS ORDERED: VANCOMYCIN HCL 1 GM/D5% WATER 200 ML IV PRN (21:45)
[2017-02-16] MEDS ORDERED: VANCOMYCIN HCL 1.5 GM in DEXTROSE 5%-WATER 250 ML IV ONE (22:00)
[2017-02-16 22:47] LABS: GLUCOSE,POINT OF CARE 273 MG/DL (70-110)
[2017-02-17] VITALS: BP 156/87
[2017-02-17] MEDS: LEVOFLOXACIN 250 MG/D5% WATER 50 ML IV SCH ×2 (00:33→23:56)
[2017-02-17] MEDS: 0.9% SODIUM CHLORIDE 10 ML SYRINGE IVP SCH ×4 (00:33→23:54)
[2017-02-17] MEDS: ALBUTEROL SULFATE 2.5 MG/0.5 ML NEB SOLUTION NEB SCH ×6 (02:59→22:45)
[2017-02-17] MEDS: IPRATROPIUM BROMIDE 0.5 MG/2.5 ML NEB SOLUTION NEB SCH ×6 (02:59→22:45)
[2017-02-17] MEDS: LEVOTHYROXINE SODIUM 25 MCG TABLET PO SCH (05:40)
[2017-02-17 05:42] LABS: GLUCOSE COMMENT 1 Received Meds; GLUCOSE,POINT OF CARE 314 MG/DL (70-110)
[2017-02-17 06:00] VITALS: BP 168/60
[2017-02-17] MEDS: OXYGEN THERAPY IH SCH ×2 (07:23→19:47)
[2017-02-17 07:55] VITALS: BP 126/50
[2017-02-17] MEDS: GABAPENTIN 100 MG CAPSULE PO SCH ×2 (08:28→19:58)
[2017-02-17] MEDS: CETIRIZINE HCL 10 MG TABLET PO SCH (08:28)
[2017-02-17] MEDS: APIXABAN 2.5 MG TABLET PO SCH ×2 (08:28→19:59)
[2017-02-17] MEDS: AMIODARONE HCL 200 MG TABLET PO SCH (08:29)
[2017-02-17] MEDS: VITAMINS A & D 60 GM OINTMENT TP SCH (08:29)
[2017-02-17] MEDS: PredniSONE 5 MG TABLET PO SCH (08:29)
[2017-02-17] MEDS: CHOLECALCIFEROL (VIT D3) 1,000 UNITS TABLET PO SCH (08:29)
[2017-02-17] MEDS: DOCUSATE SODIUM 250 MG CAPSULE PO SCH (08:29)
[2017-02-17] MEDS: VITAMIN B COMP/VIT C/FOLIC ACID CAPSULE PO SCH (08:29)
[2017-02-17] MEDS: FOLIC ACID 1 MG TABLET PO SCH (08:29)
[2017-02-17] MEDS: INSULIN DETEMIR 100 UNITS/ML SQ SCH ×2 (08:38→20:47)
[2017-02-17] MEDS: INSULIN ASPART 100 UNITS/ML SQ PRN ×3 (08:38→20:49)
[2017-02-17 12:02] LABS: GLUCOSE COMMENT 1 Received Meds; GLUCOSE,POINT OF CARE 218 MG/DL (70-110)
[2017-02-17 17:11] VITALS: BP 128/55
[2017-02-17] MEDS: SENNA 187 MG TABLET PO SCH (19:58)
[2017-02-17] MEDS: ATORVASTATIN CALCIUM 20 MG TABLET PO SCH (19:58)
[2017-02-17] MEDS: SULFAMETHOX/TRIMETH 25 ML in DEXTROSE 5%-WATER 250 ML IV SCH (19:58)
[2017-02-17] MEDS: FAMOTIDINE 20 MG TABLET PO SCH (19:58)
[2017-02-17] MEDS ORDERED: SODIUM CHLORIDE 0.9% 250 ML IV ONE (20:37)
[2017-02-17 21:52] LABS: GLUCOSE COMMENT 1 Received Meds; GLUCOSE,POINT OF CARE 169 MG/DL (70-110)
[2017-02-17 21:52] LABS: GLUCOSE,POINT OF CARE 297 MG/DL (70-110)
[2017-02-18 00:21] VITALS: BP 141/84
[2017-02-18] MEDS: IPRATROPIUM BROMIDE 0.5 MG/2.5 ML NEB SOLUTION NEB SCH ×6 (03:01→23:23)
[2017-02-18] MEDS: ALBUTEROL SULFATE 2.5 MG/0.5 ML NEB SOLUTION NEB SCH ×6 (03:01→23:23)
[2017-02-18 05:53] LABS: GLUCOSE,POINT OF CARE 262 MG/DL (70-110)
[2017-02-18] MEDS: LEVOTHYROXINE SODIUM 25 MCG TABLET PO SCH (06:07)
[2017-02-18 06:44] VITALS: BP 143/78
[2017-02-18 07:20] VITALS: BP 117/61
[2017-02-18] MEDS: OXYGEN THERAPY IH SCH ×2 (08:47→21:09)
[2017-02-18] MEDS: DOCUSATE SODIUM 250 MG CAPSULE PO SCH (09:01)
[2017-02-18] MEDS: APIXABAN 2.5 MG TABLET PO SCH ×2 (09:02→21:09)
[2017-02-18] MEDS: AMIODARONE HCL 200 MG TABLET PO SCH (09:02)
[2017-02-18] MEDS: FOLIC ACID 1 MG TABLET PO SCH (09:02)
[2017-02-18] MEDS: VITAMIN B COMP/VIT C/FOLIC ACID CAPSULE PO SCH (09:02)
[2017-02-18] MEDS: CETIRIZINE HCL 10 MG TABLET PO SCH (09:02)
[2017-02-18] MEDS: CHOLECALCIFEROL (VIT D3) 1,000 UNITS TABLET PO SCH (09:02)
[2017-02-18] MEDS: GABAPENTIN 100 MG CAPSULE PO SCH ×2 (09:02→21:09)
[2017-02-18] MEDS: PredniSONE 5 MG TABLET PO SCH (09:02)
[2017-02-18] MEDS: VITAMINS A & D 60 GM OINTMENT TP SCH (09:05)
[2017-02-18] MEDS: INSULIN ASPART 100 UNITS/ML SQ PRN ×4 (09:05→21:23)
[2017-02-18] MEDS: INSULIN DETEMIR 100 UNITS/ML SQ SCH ×2 (09:06→21:24)
[2017-02-18] MEDS: 0.9% SODIUM CHLORIDE 10 ML SYRINGE IVP SCH ×3 (09:13→23:48)
[2017-02-18 12:32] LABS: GLUCOSE,POINT OF CARE 321 MG/DL (70-110)
[2017-02-18 16:46] VITALS: BP 146/71
[2017-02-18] MEDS: FAMOTIDINE 20 MG TABLET PO SCH (21:09)
[2017-02-18] MEDS: SENNA 187 MG TABLET PO SCH (21:09)
[2017-02-18] MEDS: ATORVASTATIN CALCIUM 20 MG TABLET PO SCH (21:09)
[2017-02-18] MEDS: SULFAMETHOX/TRIMETH 25 ML in DEXTROSE 5%-WATER 250 ML IV SCH (21:10)
[2017-02-18 22:01] LABS: GLUCOSE,POINT OF CARE 253 MG/DL (70-110)
[2017-02-18 22:02] LABS: GLUCOSE,POINT OF CARE 215 MG/DL (70-110)
[2017-02-18] MEDS: LEVOFLOXACIN 250 MG/D5% WATER 50 ML IV SCH (23:50)
[2017-02-19] VITALS (7 sets, daily range): BP systolic 91–150; BP diastolic 37–76
[2017-02-19] MEDS: ALBUTEROL SULFATE 2.5 MG/0.5 ML NEB SOLUTION NEB SCH ×6 (03:32→23:08)
[2017-02-19] MEDS: IPRATROPIUM BROMIDE 0.5 MG/2.5 ML NEB SOLUTION NEB SCH ×6 (03:32→23:08)
[2017-02-19 05:33] LABS: GLUCOSE,POINT OF CARE 229 MG/DL (70-110)
[2017-02-19] MEDS: LEVOTHYROXINE SODIUM 25 MCG TABLET PO SCH (06:15)
[2017-02-19 07:48] LABS: BASOPHILS % (AUTO) 1.1 % (0.0-2.0); EOSINOPHILS % (AUTO) 3.1 % (1.0-6.0); HEMATOCRIT 29.1 % (41-53); HEMOGLOBIN 9.2 g/dL (13.5-17.5); LYMPHOCYTES # (AUTO) 1.1 K/uL (1.0-4.8); LYMPHOCYTES % (AUTO) 13.4 % (22.0-44.0); MEAN CORPUSCULAR HGB CONC 31.7 G/dL (31.0-37.0); MEAN CORPUSCULAR VOLUME 82 fL (80-100); MONOCYTES # (AUTO) 0.5 K/uL (0.1-1.0); MONOCYTES % (AUTO) 6.6 % (2.0-9.0); NEUTROPHILS # (AUTO) 6.1 K/uL (1.8-7.7); NEUTROPHILS % (AUTO) 75.8 % (40.0-70.0); PLATELET COUNT (AUTO) 129 K/uL (150-450); RED BLOOD CELL COUNT(AUTO) 3.56 MIL/uL (4.50-5.90); RED CELL DISTRIBUTION WIDTH 19.8 % (11.5-14.5); WHITE BLOOD COUNT (AUTO) 8.1 K/uL (4.5-11.0)
[2017-02-19 07:55] LABS: CALCIUM, TOTAL 8.1 mg/dL (8.8-10.5); CREATININE 6.74 mg/dL (0.60-1.30); PHOSPHORUS 6.5 mg/dL (2.5-4.9); POTASSIUM 4.7 mmol/L (3.5-5.1)
[2017-02-19] MEDS ORDERED: VANCOMYCIN HCL 1 GM/D5% WATER 200 ML IV ONE (08:00)
[2017-02-19] MEDS: 0.9% SODIUM CHLORIDE 10 ML SYRINGE IVP SCH ×3 (08:02→23:49)
[2017-02-19] MEDS: CETIRIZINE HCL 10 MG TABLET PO SCH (08:03)
[2017-02-19] MEDS: VITAMIN B COMP/VIT C/FOLIC ACID CAPSULE PO SCH (08:03)
[2017-02-19] MEDS: EPOETIN ALFA 10,000 UNITS/ML VIAL SQ SCH (08:03)
[2017-02-19] MEDS: APIXABAN 2.5 MG TABLET PO SCH ×2 (08:03→22:24)
[2017-02-19] MEDS: DOCUSATE SODIUM 250 MG CAPSULE PO SCH (08:03)
[2017-02-19] MEDS: AMIODARONE HCL 200 MG TABLET PO SCH (08:03)
[2017-02-19] MEDS: GABAPENTIN 100 MG CAPSULE PO SCH ×2 (08:03→22:26)
[2017-02-19] MEDS: CHOLECALCIFEROL (VIT D3) 1,000 UNITS TABLET PO SCH (08:03)
[2017-02-19] MEDS: PredniSONE 5 MG TABLET PO SCH (08:03)
[2017-02-19] MEDS: FOLIC ACID 1 MG TABLET PO SCH (08:03)
[2017-02-19] MEDS: OXYGEN THERAPY IH SCH ×2 (08:04→21:30)
[2017-02-19] MEDS: VITAMINS A & D 60 GM OINTMENT TP SCH (08:05)
[2017-02-19] MEDS: INSULIN ASPART 100 UNITS/ML SQ PRN ×2 (08:07→13:57)
[2017-02-19] MEDS: INSULIN DETEMIR 100 UNITS/ML SQ SCH ×2 (08:07→22:57)
[2017-02-19 08:13] LABS: PROCALCITONIN (PCT) 1.75 ng/mL (<0.50)
[2017-02-19 11:48] LABS: RBC MORPHOLOGY COMMENT ABNORMAL RBC MORPH
[2017-02-19] MEDS ORDERED: HEPARIN SODIUM,PORCINE 1,000 UNITS/ML VIAL IVP ONE (12:00)
[2017-02-19 12:12] LABS: GLUCOSE,POINT OF CARE 203 MG/DL (70-110)
[2017-02-19 18:56] LABS: GLUCOSE,POINT OF CARE 151 MG/DL (70-110)
[2017-02-19 21:46] LABS: GLUCOSE,POINT OF CARE 138 MG/DL (70-110)
[2017-02-19] MEDS: CEFEPIME HCL 1 GM in DEXTROSE 5%-WATER 50 ML IV SCH (22:23)
[2017-02-19] MEDS: ATORVASTATIN CALCIUM 20 MG TABLET PO SCH (22:24)
[2017-02-19] MEDS: SENNA 187 MG TABLET PO SCH (22:24)
[2017-02-19] MEDS: FAMOTIDINE 20 MG TABLET PO SCH (22:24)
[2017-02-19] MEDS: SULFAMETHOX/TRIMETH 25 ML in DEXTROSE 5%-WATER 250 ML IV SCH ×2 (22:57→23:00)
[2017-02-20] MEDS: SULFAMETHOX/TRIMETH DS 800-160 MG/TABLET PO SCH ×3 (00:19→21:13)
[2017-02-20] MEDS: ALBUTEROL SULFATE 2.5 MG/0.5 ML NEB SOLUTION NEB SCH ×4 (03:10→18:54)
[2017-02-20] MEDS: IPRATROPIUM BROMIDE 0.5 MG/2.5 ML NEB SOLUTION NEB SCH ×4 (03:10→18:54)
[2017-02-20 05:46] LABS: GLUCOSE,POINT OF CARE 172 MG/DL (70-110)
[2017-02-20] MEDS: LEVOTHYROXINE SODIUM 25 MCG TABLET PO SCH (07:03)
[2017-02-20 07:05] VITALS: BP 110/45
[2017-02-20] MEDS: ACETAMINOPHEN 325 MG TABLET PO PRN (07:09)
[2017-02-20] MEDS: OXYGEN THERAPY IH SCH ×2 (07:27→21:08)
[2017-02-20] MEDS: 0.9% SODIUM CHLORIDE 10 ML SYRINGE IVP SCH ×2 (08:00→16:00)
[2017-02-20 08:58] LABS: GLUCOSE COMMENT 1 Received Meds; GLUCOSE,POINT OF CARE 205 MG/DL (70-110)
[2017-02-20] MEDS: APIXABAN 2.5 MG TABLET PO SCH ×2 (09:14→21:13)
[2017-02-20] MEDS: VITAMINS A & D 60 GM OINTMENT TP SCH (09:14)
[2017-02-20] MEDS: CHOLECALCIFEROL (VIT D3) 1,000 UNITS TABLET PO SCH (09:14)
[2017-02-20 09:15] VITALS: BP 112/60
[2017-02-20] MEDS: GABAPENTIN 100 MG CAPSULE PO SCH ×2 (09:15→21:13)
[2017-02-20] MEDS: VITAMIN B COMP/VIT C/FOLIC ACID CAPSULE PO SCH (09:15)
[2017-02-20] MEDS: PredniSONE 5 MG TABLET PO SCH (09:15)
[2017-02-20] MEDS: CETIRIZINE HCL 10 MG TABLET PO SCH (09:15)
[2017-02-20] MEDS: FOLIC ACID 1 MG TABLET PO SCH (09:15)
[2017-02-20] MEDS: AMIODARONE HCL 200 MG TABLET PO SCH (09:15)
[2017-02-20] MEDS: DOCUSATE SODIUM 250 MG CAPSULE PO SCH (09:15)
[2017-02-20] MEDS: INSULIN DETEMIR 100 UNITS/ML SQ SCH ×2 (09:16→21:16)
[2017-02-20] MEDS ORDERED: LACTULOSE 20 GM/30 ML SOLUTION UDCUP PO ONE (11:45)
[2017-02-20] MEDS: INSULIN ASPART 100 UNITS/ML SQ PRN ×3 (12:29→21:18)
[2017-02-20 12:47] LABS: GLUCOSE COMMENT 1 Received Meds; GLUCOSE,POINT OF CARE 209 MG/DL (70-110)
[2017-02-20] MEDS ORDERED: SODIUM CHLORIDE 0.9% 1,000 ML IV ONE ×2 (13:24→13:25)
[2017-02-20] MEDS: CEFEPIME HCL 1 GM in DEXTROSE 5%-WATER 50 ML IV SCH (15:10)
[2017-02-20] MEDS ORDERED: HEPARIN SODIUM,PORCINE 1,000 UNITS/ML VIAL IVP ONE (17:07)
[2017-02-20] MEDS ORDERED: ALBUMIN HUMAN 25%-12.5GM/50ML IV BOTTLE IV ONE (17:07)
[2017-02-20 17:53] VITALS: BP 113/46
[2017-02-20 18:12] LABS: GLUCOSE,POINT OF CARE 144 MG/DL (70-110)
[2017-02-20] MEDS: FAMOTIDINE 20 MG TABLET PO SCH (21:13)
[2017-02-20] MEDS: ATORVASTATIN CALCIUM 20 MG TABLET PO SCH (21:13)
[2017-02-20] MEDS: SENNA 187 MG TABLET PO SCH (21:13)
[2017-02-20 21:17] LABS: GLUCOSE,POINT OF CARE 176 MG/DL (70-110)
[2017-02-21] VITALS: BP_SYST 131; BP_SYST 141; BP_DIAS 66; BP_DIAS 78
[2017-02-21] MEDS: ALBUTEROL SULFATE 2.5 MG/0.5 ML NEB SOLUTION NEB SCH ×7 (00:30→23:46)
[2017-02-21] MEDS: IPRATROPIUM BROMIDE 0.5 MG/2.5 ML NEB SOLUTION NEB SCH ×7 (00:30→23:46)
[2017-02-21] MEDS: ACETAMINOPHEN 325 MG TABLET PO PRN ×2 (04:51→09:07)
[2017-02-21 05:42] LABS: GLUCOSE,POINT OF CARE 146 MG/DL (70-110)
[2017-02-21] MEDS: LEVOTHYROXINE SODIUM 25 MCG TABLET PO SCH (05:49)
[2017-02-21] MEDS: 0.9% SODIUM CHLORIDE 10 ML SYRINGE IVP SCH ×3 (08:00→16:00)
[2017-02-21 08:28] VITALS: BP 122/58
[2017-02-21] MEDS: [UNRECOGNIZED DRUG - REMARK] MISC SCH (09:00)
[2017-02-21] MEDS: SULFAMETHOX/TRIMETH DS 800-160 MG/TABLET PO SCH ×2 (09:08→21:59)
[2017-02-21] MEDS: FOLIC ACID 1 MG TABLET PO SCH (09:08)
[2017-02-21] MEDS: DOCUSATE SODIUM 250 MG CAPSULE PO SCH (09:08)
[2017-02-21] MEDS: GABAPENTIN 100 MG CAPSULE PO SCH ×2 (09:08→21:58)
[2017-02-21] MEDS: LACTULOSE 20 GM/30 ML SOLUTION UDCUP PO SCH (09:08)
[2017-02-21] MEDS: EPOETIN ALFA 10,000 UNITS/ML VIAL SQ SCH (09:08)
[2017-02-21] MEDS: AMIODARONE HCL 200 MG TABLET PO SCH (09:08)
[2017-02-21] MEDS: VITAMIN B COMP/VIT C/FOLIC ACID CAPSULE PO SCH (09:08)
[2017-02-21] MEDS: APIXABAN 2.5 MG TABLET PO SCH ×2 (09:08→21:59)
[2017-02-21] MEDS: CETIRIZINE HCL 10 MG TABLET PO SCH (09:08)
[2017-02-21] MEDS: PredniSONE 5 MG TABLET PO SCH (09:08)
[2017-02-21] MEDS: CHOLECALCIFEROL (VIT D3) 1,000 UNITS TABLET PO SCH (09:08)
[2017-02-21] MEDS: VITAMINS A & D 60 GM OINTMENT TP SCH (09:09)
[2017-02-21] MEDS: INSULIN DETEMIR 100 UNITS/ML SQ SCH ×2 (09:14→22:00)
[2017-02-21] MEDS: INSULIN ASPART 100 UNITS/ML SQ PRN ×3 (09:15→22:01)
[2017-02-21] MEDS: OXYGEN THERAPY IH SCH ×2 (09:16→20:07)
[2017-02-21] MEDS ORDERED: HEPARIN SODIUM,PORCINE 1,000 UNITS/ML VIAL IVP ONE ×3 (12:15→15:45)
[2017-02-21] MEDS ORDERED: ALBUMIN HUMAN 25%-12.5GM/50ML IV BOTTLE IV ONE (12:15)
[2017-02-21 12:33] LABS: GLUCOSE,POINT OF CARE 186 MG/DL (70-110)
[2017-02-21] MEDS ORDERED: SODIUM CHLORIDE 0.9% 2,000 ML IV ONE (13:08)
[2017-02-21] MEDS ORDERED: ALBUMIN HUMAN 25%-12.5GM/50ML IV BOTTLE IV PRN (15:45)
[2017-02-21] MEDS ORDERED: MANNITOL 25%-12.5 GM/50 ML VIAL IVP PRN (15:45)
[2017-02-21 18:00] VITALS: BP 124/71
[2017-02-21] MEDS: CEFEPIME HCL 2 GM in DEXTROSE 5%-WATER 50 ML IV PRN (18:20)
[2017-02-21 18:28] LABS: GLUCOSE,POINT OF CARE 87 MG/DL (70-110)
[2017-02-21] MEDS: SENNA 187 MG TABLET PO SCH (21:58)
[2017-02-21] MEDS: ATORVASTATIN CALCIUM 20 MG TABLET PO SCH (21:58)
[2017-02-21] MEDS: FAMOTIDINE 20 MG TABLET PO SCH (21:59)
[2017-02-21 22:12] LABS: GLUCOSE,POINT OF CARE 143 MG/DL (70-110)
[2017-02-22 00:55] VITALS: BP 147/45
[2017-02-22] MEDS: ALBUTEROL SULFATE 2.5 MG/0.5 ML NEB SOLUTION NEB SCH ×6 (03:00→23:21)
[2017-02-22] MEDS: IPRATROPIUM BROMIDE 0.5 MG/2.5 ML NEB SOLUTION NEB SCH ×6 (03:00→23:21)
[2017-02-22] MEDS: LEVOTHYROXINE SODIUM 25 MCG TABLET PO SCH (05:46)
[2017-02-22 05:52] LABS: GLUCOSE,POINT OF CARE 117 MG/DL (70-110)
[2017-02-22 07:26] VITALS: BP 110/48
[2017-02-22] MEDS: VITAMINS A & D 60 GM OINTMENT TP SCH (08:15)
[2017-02-22] MEDS: GABAPENTIN 100 MG CAPSULE PO SCH ×2 (08:15→21:35)
[2017-02-22] MEDS: LACTULOSE 20 GM/30 ML SOLUTION UDCUP PO SCH (08:15)
[2017-02-22] MEDS: SULFAMETHOX/TRIMETH DS 800-160 MG/TABLET PO SCH ×2 (08:15→21:35)
[2017-02-22] MEDS: DOCUSATE SODIUM 250 MG CAPSULE PO SCH ×2 (08:16→21:35)
[2017-02-22] MEDS: PredniSONE 5 MG TABLET PO SCH (08:17)
[2017-02-22] MEDS: CHOLECALCIFEROL (VIT D3) 1,000 UNITS TABLET PO SCH (08:17)
[2017-02-22] MEDS: FOLIC ACID 1 MG TABLET PO SCH (08:17)
[2017-02-22] MEDS: CETIRIZINE HCL 10 MG TABLET PO SCH (08:17)
[2017-02-22] MEDS: AMIODARONE HCL 200 MG TABLET PO SCH (08:17)
[2017-02-22] MEDS: VITAMIN B COMP/VIT C/FOLIC ACID CAPSULE PO SCH (08:17)
[2017-02-22] MEDS: APIXABAN 2.5 MG TABLET PO SCH ×2 (08:17→21:35)
[2017-02-22] MEDS: OXYGEN THERAPY IH SCH ×2 (08:19→21:35)
[2017-02-22] MEDS: INSULIN DETEMIR 100 UNITS/ML SQ SCH ×2 (08:23→21:36)
[2017-02-22] MEDS: [UNRECOGNIZED DRUG - REMARK] MISC SCH (09:00)
[2017-02-22 12:02] LABS: GLUCOSE,POINT OF CARE 168 MG/DL (70-110)
[2017-02-22] MEDS: INSULIN ASPART 100 UNITS/ML SQ PRN (12:29)
[2017-02-22 15:15] VITALS: BP 113/47
[2017-02-22] MEDS: SENNA 187 MG TABLET PO SCH (21:35)
[2017-02-22] MEDS: FAMOTIDINE 20 MG TABLET PO SCH (21:35)
[2017-02-22] MEDS: ATORVASTATIN CALCIUM 20 MG TABLET PO SCH (21:35)
[2017-02-22 21:57] LABS: GLUCOSE,POINT OF CARE 139 MG/DL (70-110)
[2017-02-23] VITALS: BP 103/74
[2017-02-23] MEDS: ALBUTEROL SULFATE 2.5 MG/0.5 ML NEB SOLUTION NEB SCH ×6 (03:08→23:11)
[2017-02-23] MEDS: IPRATROPIUM BROMIDE 0.5 MG/2.5 ML NEB SOLUTION NEB SCH ×6 (03:08→23:11)
[2017-02-23 05:21] LABS: GLUCOSE,POINT OF CARE 132 MG/DL (70-110)
[2017-02-23 06:22] LABS: GLUCOSE,POINT OF CARE 139 MG/DL (70-110)
[2017-02-23] MEDS: LEVOTHYROXINE SODIUM 25 MCG TABLET PO SCH (06:34)
[2017-02-23 07:05] LABS: CALCIUM, TOTAL 8.1 mg/dL (8.8-10.5); CREATININE 4.79 mg/dL (0.60-1.30); POTASSIUM 4.1 mmol/L (3.5-5.1)
[2017-02-23 07:30] VITALS: BP 141/58
[2017-02-23] MEDS: VITAMIN B COMP/VIT C/FOLIC ACID CAPSULE PO SCH (08:07)
[2017-02-23] MEDS: SULFAMETHOX/TRIMETH DS 800-160 MG/TABLET PO SCH ×2 (08:07→21:42)
[2017-02-23] MEDS: CETIRIZINE HCL 10 MG TABLET PO SCH (08:07)
[2017-02-23] MEDS: GABAPENTIN 100 MG CAPSULE PO SCH ×2 (08:07→21:42)
[2017-02-23] MEDS: APIXABAN 2.5 MG TABLET PO SCH ×2 (08:07→21:42)
[2017-02-23] MEDS: FOLIC ACID 1 MG TABLET PO SCH (08:07)
[2017-02-23] MEDS: AMIODARONE HCL 200 MG TABLET PO SCH (08:07)
[2017-02-23] MEDS: CHOLECALCIFEROL (VIT D3) 1,000 UNITS TABLET PO SCH (08:07)
[2017-02-23] MEDS: PredniSONE 5 MG TABLET PO SCH (08:08)
[2017-02-23] MEDS: LACTULOSE 20 GM/30 ML SOLUTION UDCUP PO SCH (08:08)
[2017-02-23] MEDS: DOCUSATE SODIUM 250 MG CAPSULE PO SCH ×2 (08:08→21:42)
[2017-02-23] MEDS: EPOETIN ALFA 10,000 UNITS/ML VIAL SQ SCH (08:09)
[2017-02-23] MEDS: VITAMINS A & D 60 GM OINTMENT TP SCH (08:09)
[2017-02-23] MEDS: INSULIN DETEMIR 100 UNITS/ML SQ SCH ×2 (08:22→21:44)
[2017-02-23] MEDS: OXYGEN THERAPY IH SCH ×2 (11:11→21:03)
[2017-02-23] MEDS: INSULIN ASPART 100 UNITS/ML SQ PRN ×2 (13:07→21:43)
[2017-02-23 13:26] LABS: GLUCOSE COMMENT 1 Received Meds; GLUCOSE,POINT OF CARE 220 MG/DL (70-110)
[2017-02-23] MEDS ORDERED: HEPARIN SODIUM,PORCINE 1,000 UNITS/ML VIAL IVP ONE ×3 (13:30→18:30)
[2017-02-23] MEDS ORDERED: MANNITOL 25%-12.5 GM/50 ML VIAL IVP PRN (13:30)
[2017-02-23 15:24] VITALS: BP 123/42
[2017-02-23] MEDS: CEFEPIME HCL 2 GM in DEXTROSE 5%-WATER 50 ML IV PRN (15:37)
[2017-02-23 18:12] LABS: GLUCOSE,POINT OF CARE 132 MG/DL (70-110)
[2017-02-23] MEDS ORDERED: LIDOCAINE HCL/PF 1% 2 ML VIAL IM ONE (18:30)
[2017-02-23] MEDS: ATORVASTATIN CALCIUM 20 MG TABLET PO SCH (21:42)
[2017-02-23] MEDS: FAMOTIDINE 20 MG TABLET PO SCH (21:42)
[2017-02-23] MEDS: SENNA 187 MG TABLET PO SCH (21:43)
[2017-02-23 21:57] LABS: GLUCOSE COMMENT 1 Received Meds; GLUCOSE,POINT OF CARE 173 MG/DL (70-110)
[2017-02-23 23:50] VITALS: BP 149/73
[2017-02-24] MEDS: ALBUTEROL SULFATE 2.5 MG/0.5 ML NEB SOLUTION NEB SCH ×2 (03:31→08:21)
[2017-02-24] MEDS: IPRATROPIUM BROMIDE 0.5 MG/2.5 ML NEB SOLUTION NEB SCH ×2 (03:31→08:21)
[2017-02-24 06:02] LABS: GLUCOSE,POINT OF CARE 223 MG/DL (70-110)
[2017-02-24] MEDS: LEVOTHYROXINE SODIUM 25 MCG TABLET PO SCH (06:15)
[2017-02-24 09:10] VITALS: BP 113/57
[2017-02-24] MEDS: LACTULOSE 20 GM/30 ML SOLUTION UDCUP PO SCH (09:19)
[2017-02-24] MEDS: DOCUSATE SODIUM 250 MG CAPSULE PO SCH (09:20)
[2017-02-24] MEDS: PredniSONE 5 MG TABLET PO SCH (09:20)
[2017-02-24] MEDS: APIXABAN 2.5 MG TABLET PO SCH (09:20)
[2017-02-24] MEDS: GABAPENTIN 100 MG CAPSULE PO SCH (09:20)
[2017-02-24] MEDS: SULFAMETHOX/TRIMETH DS 800-160 MG/TABLET PO SCH (09:20)
[2017-02-24] MEDS: VITAMIN B COMP/VIT C/FOLIC ACID CAPSULE PO SCH (09:20)
[2017-02-24] MEDS: CHOLECALCIFEROL (VIT D3) 1,000 UNITS TABLET PO SCH (09:20)
[2017-02-24] MEDS: FOLIC ACID 1 MG TABLET PO SCH (09:20)
[2017-02-24] MEDS: AMIODARONE HCL 200 MG TABLET PO SCH (09:20)
[2017-02-24] MEDS: CETIRIZINE HCL 10 MG TABLET PO SCH (09:20)
[2017-02-24] MEDS: OXYGEN THERAPY IH SCH (09:21)
[2017-02-24] MEDS: VITAMINS A & D 60 GM OINTMENT TP SCH (09:22)
[2017-02-24] MEDS: INSULIN ASPART 100 UNITS/ML SQ PRN (09:23)
[2017-02-24] MEDS: INSULIN DETEMIR 100 UNITS/ML SQ SCH (09:24)
== END 2017-02-24 10:25 | DRG 85 ==
LOC: 2WR 17:29
DX: S06.9X0A Unspecified intracranial injury without loss of consciousness, initial encounter (principal); N18.6 End stage renal disease; J15.6 Pneumonia due to other Gram-negative bacteria; J96.91 Respiratory failure, unspecified with hypoxia; G62.81 Critical illness polyneuropathy; Z94.0 Kidney transplant status; G81.91 Hemiplegia, unspecified affecting right dominant side; I13.2 Hypertensive heart and chronic kidney disease with heart failure and with stage 5 chronic kidney disease, or end stage renal disease; I82.C11 Acute embolism and thrombosis of right internal jugular vein; T86.12 Kidney transplant failure; G47.33 Obstructive sleep apnea (adult) (pediatric); G40.909 Epilepsy, unspecified, not intractable, without status epilepticus; G25.81 Restless legs syndrome; E78.5 Hyperlipidemia, unspecified; E10.22 Type 1 diabetes mellitus with diabetic chronic kidney disease; J45.909 Unspecified asthma, uncomplicated; F41.9 Anxiety disorder, unspecified; F32.9 Major depressive disorder, single episode, unspecified; D63.8 Anemia in other chronic diseases classified elsewhere; E66.9 Obesity, unspecified; E03.9 Hypothyroidism, unspecified; I48.91 Unspecified atrial fibrillation; I50.9 Heart failure, unspecified; Z99.2 Dependence on renal dialysis; Z79.01 Long term (current) use of anticoagulants; Z86.718 Personal history of other venous thrombosis and embolism; Z87.891 Personal history of nicotine dependence; R13.10 Dysphagia, unspecified; E55.9 Vitamin D deficiency, unspecified; F12.90 Cannabis use, unspecified, uncomplicated; Z93.0 Tracheostomy status
CPT/HCPCS: 71250; 82271; 82962; 83735; 84100; 84145; 87040; 87081; 87340; 90935; 92507; 92523; 93925; 93970; 94640; 94660; 97110; 97112; 97163; 97167; 97530; 97535; 99366; J0692; J0885; J1644; J1956; J2150; J3370; J3490; J7030; J7050; J7060; P9047